=== PATIENT | female | born 1945 | race Caucasian/White ===

== ENCOUNTER 2017-11-04 10:15 | Inpatient (IN) ==
--- NOTE | 2017-11-04 10:27 | Emergency Department Note ---
Disposition Clinical Impression: Palpitations, SSS (sick sinus syndrome) Disposition: Admitted As Inpatient Condition: Critical Referrals: Val Joseph CNP [Primary Care Provider] - Forms: ED Satisfaction Letter Time of Disposition: 12:26 General Adult HPI - General Chief complaint: ED Arrhythmia/Palpitations Stated complaint: Syncopal Episode Time Seen by Provider: 11/04/17 10:24 Source: EMS Limitations: no limitations Nursing Notes Reviewed: Yes Vital Signs Reviewed: Yes - History of Present Illness HPI Narrative: Patient to the ED as a transfer from [place]. Patient presented for not feeling well. Has been on amoxicillin for upper respiratory symptoms. Whether she had 2 syncopal episodes and was noted to go into asystole with 8-9 second pauses. Patient denies chest pain or trouble breathing. Pain Scale: 0 - Related Data Home Medications Medication Instructions Recorded Confirmed Calcium Carbonate/Vitamin D3 4 tab PO BID 08/18/15 11/04/17 [Calcium 600 + Vit D Softgel] Cranberry 800 mg PO QAM 08/18/15 11/04/17 Levothyroxine [Synthroid] 100 mcg PO 0608/18/15 11/04/17 Metoprolol [Lopressor] 100 mg PO BID 08/18/15 11/04/17 Omeprazole [PriLOSEC] 40 mg PO QAM 08/18/15 11/04/17 Potassium Chloride [K-Tab ER] 10 meq PO BID 08/18/15 11/04/17 Spironolactone [Aldactone] 25 mg PO QAM 08/18/15 11/04/17 Ubidecarenone [Co Q10] 100 mg PO QAM 08/18/15 11/04/17 metFORMIN [Glucophage] 500 mg PO BIDWM 08/18/15 11/04/17 Apixaban [Eliquis] 5 mg PO BID 08/23/15 11/04/17 Metoprolol [Lopressor] 25 mg PO DAILY PRN 03/15/17 11/04/17 Allopurinol [Zyloprim] 300 mg PO DAILY 09/02/17 11/04/17 Iron 65 mg PO DAILY 09/02/17 11/04/17 Previous Rx's Medication Instructions Recorded Diltiazem HCl [Diltiazem 24Hr ER] 300 mg PO QPM #0 NS 03/11/16 Allergies Allergy/AdvReac Type Severity Reaction Status Date / Time ascorbic acid [From Fetrin] AdvReac Vomiting Verified 09/02/17 23:36 clarithromycin [From Biaxin] AdvReac HEART Verified 09/02/17 23:36 RACING Hydralazine AdvReac HEART Verified 09/02/17 23:36 RACING iron [From Fetrin] AdvReac Vomiting Verified 09/02/17 23:36 levofloxacin [From Levaquin] AdvReac HEART Verified 09/02/17 23:36 RACING lisinopril AdvReac HEART Verified 09/02/17 23:36 SKIPPING milnacipran [From Savella] AdvReac Vomiting Verified 09/02/17 23:36 prochlorperazine AdvReac STOMACH Verified 09/02/17 23:36 [From Compazine] PAIN vitamin B12 with intrinsic AdvReac Vomiting Verified 09/02/17 23:36 factor [From Fetrin] All systems ED: reviewed and negative except as stated. Cardiovascular: Denies: chest pain Respiratory: Denies: dyspnea Gastrointestinal: Denies: vomiting, diarrhea Past Medical History - Past Medical History Attestation: Yes The following information was validated with the patient. Source: patient Medical history: Reports: atrial fibrillation, diabetes, fibromyalgia, GERD, hyperlipidemia, hypertension, kidney stones Surgical history: Reports: hysterectomy Psychiatric history: Reports: no psych history - Social History Smoking Status: Never smoker Smokeless Tobacco Status: No Alcohol use: Reports: none Drug use: Reports: none Physical Exam Patient awake and alert. Has had several episodes where she clenches her fists in her eyes rolled back in her head and goes into asystole on the monitor. - General Limitations: no limitations General appearance: alert, in no apparent distress - Head Head exam: atraumatic - Eye Eye exam: Present: normal appearance - ENT ENT exam: normal exam - Neck Neck exam: Present: normal inspection - Chest Chest inspection: Present: normal inspection - Respiratory Respiratory exam: Present: normal lung sounds bilaterally - Cardiovascular Cardiovascular exam: Present: regular rate, normal rhythm - Abdominal Exam Abdominal exam: Present: soft - Neurological Exam Neurological exam: Present: alert - Psychiatric Psychiatric exam: Present: normal affect - Skin Skin exam: Present: warm, dry Course - Reevaluation(s) Reevaluation #1: Patient going to Property [employer] at this time. She has had multiple repeat episodes where again he is pacing has kicked in. Time: 12:24 - Consultations Consultation #1: Cardiology consult at bedside Dr. Dean and Dr. Butler. Patient will be gone for permanent pacemaker placement. She has had 5 episodes of asystole. She is responding to trans cutaneous pacing at this time. Time: 10:59 Consultation #2: Patient to Property [employer] Agent for permanent pacemaker placement. Time: 11:44 Vital Signs Temperature 99.7 F H 11/04/17 10:17 Pulse Rate 96 11/04/17 10:17 Respiratory Rate 18 11/04/17 10:17 Blood Pressure 129/64 11/04/17 10:17 O2 Sat by Pulse Oximetry 96 11/04/17 10:17 Temperature 99.7 F H 11/04/17 10:17 Pulse Rate 79 11/04/17 11:54 Respiratory Rate 20 11/04/17 11:54 Blood Pressure 143/59 11/04/17 11:54 O2 Sat by Pulse Oximetry 98 11/04/17 11:54 Oxygen Delivery Oxygen Delivery Nasal Cannula Medical Decision Making - EKG Data EKG #1 EKG attestation: Yes I reviewed and interpreted this EKG. EKG results narrative: A. fib at 83. No ST segment changes. Normal QRS. No T-wave inversions. QTC 380 QTC 428. Critical Care Time Critical Care Time: Yes Total Critical Care Time: 45 Attestation: Critical care performed: Time is exclusive of separately billable procedures. Time includes: direct patient care, patient reassessment, coordination of patient care, interpretation of data (laboratory data, radiology data, and respiratory data), review of patient's medical records, medical consultation and documentation of patient care. Procedures included in critical care time: Procedures excluded from critical care time:
[2017-11-04] MEDS ORDERED: 0.9 % Sodium Chloride 1,000 ML ONE (10:33)
--- NOTE | 2017-11-04 11:08 | Cardiology History & Physical ---
Date of Encounter: 11/04/17 Time of Encounter: 11:00 Assessment and Plan (1) Atrial fibrillation Current Visit: No Status: Acute Continue eliquis and rate control, consult EP for PPM. The assessment and plan as outlined above was discussed with the patient and/or family members who expressed understanding and agreement. All questions were answered. Qualifiers: Atrial fibrillation type: persistent Qualified Code(s): I48.1 - Persistent atrial fibrillation (2) Sick sinus syndrome Current Visit: Yes Status: Acute plan for PPM today with long pauses, consult EP. continue rate control and eliquis The assessment and plan as outlined above was discussed with the patient and/or family members who expressed understanding and agreement. All questions were answered. (3) Dizziness Current Visit: Yes Status: Acute The assessment and plan as outlined above was discussed with the patient and/or family members who expressed understanding and agreement. All questions were answered. History of Present Illness Chief complaint: presyncope HPI: Ms. Kimbrough is a 72 year old female with history of atrial fibrillation on Eliquis and rate control presents with presyncope/worsening dizziness starting last night that worsened this morning. It was not associated with dyspnea. She has chronic symptoms of indigestion. She notes no syncope. She had slight fever but no dyspnea, cough, dysuria. She has chronic intermittent diarrhea. Past Med Surg Social Fam HX - Past Medical History Medical history: atrial fibrillation, diabetes, fibromyalgia, GERD, hyperlipidemia, hypertension, kidney stones Psychiatric history: no psych history - Past Surgical History Surgical History: hysterectomy - Social History Smoking Status: Never smoker Smokeless Tobacco Status: No Alcohol use: none Drug use: none - Family History Mother Living Status: Hx Family Cardiac Disorders: Yes (Afib) Father Living Status: Hx Family Cancer: Yes (bowel cancer) Medications and Allergies Calcium Carbonate/Vitamin D3 [Calcium 600 + Vit D Softgel] 4 tab PO BID [History] Cranberry 800 mg PO QAM 08/18/15 [History] Levothyroxine [Synthroid] 100 mcg PO 0630 08/18/15 [History] Metoprolol [Lopressor] 100 mg PO BID 08/18/15 [History] Omeprazole [PriLOSEC] 40 mg PO QAM 08/18/15 [History] Potassium Chloride [K-Tab ER] 10 meq PO BID 08/18/15 [History] Spironolactone [Aldactone] 25 mg PO QAM 08/18/15 [History] Ubidecarenone [Co Q10] 100 mg PO QAM 08/18/15 [History] metFORMIN [Glucophage] 500 mg PO BIDWM 08/18/15 [History] Apixaban [Eliquis] 5 mg PO BID 08/23/15 [History] Diltiazem HCl [Diltiazem 24Hr ER] 300 mg PO QPM #0 NS 08/23/15 [Rx] Metoprolol [Lopressor] 25 mg PO DAILY PRN 03/15/17 [History] Allopurinol [Zyloprim] 300 mg PO DAILY 09/02/17 [History] Iron 65 mg PO DAILY 09/02/17 [History] 3 Allergy/AdvReac Type Severity Reaction Status Date / Time ascorbic acid [From Fetrin] AdvReac Vomiting Verified 09/02/17 23:36 clarithromycin [From Biaxin] AdvReac HEART Verified 09/02/17 23:36 RACING Hydralazine AdvReac HEART Verified 09/02/17 23:36 RACING iron [From Fetrin] AdvReac Vomiting Verified 09/02/17 23:36 levofloxacin [From Levaquin] AdvReac HEART Verified 09/02/17 23:36 RACING lisinopril AdvReac HEART Verified 09/02/17 23:36 SKIPPING milnacipran [From Savella] AdvReac Vomiting Verified 09/02/17 23:36 prochlorperazine AdvReac STOMACH Verified 09/02/17 23:36 [From Compazine] PAIN vitamin B12 with intrinsic AdvReac Vomiting Verified 09/02/17 23:36 factor [From Fetrin] All Systems Review: The remainder of the systems were reviewed and are negative - Constitutional Constitutional: fever(s), no chills - EENT Eyes: no blurred vision, no loss of vision Nose, mouth and throat: no bleeding gums, no epistaxis - Cardiovascular Cardiovascular: chest pain with exertion, no claudication - Respiratory Respiratory: no hemoptysis, no wheezing - Gastrointestinal Gastrointestinal: no hematemesis, no hematochezia - Genitourinary Genitourinary: no hematuria, no nocturia - Musculoskeletal Musculoskeletal: no arthralgias, no myalgias - Integumentary Integumentary: no erythema, no unusual bruising - Neurological Neurological: dizziness, no syncope, no tingling - Psychiatric Psychiatric: no hallucinations, no panic attacks - Hematological/Lymphatic Hematologic/Lymphatic: no easy bleeding, no easy bruising Physical Examination Vital Signs, Last 4 Hours Temp Pulse Resp BP Pulse Ox 11/04/17 11:00 85 20 140/65 98 11/04/17 10:17 99.7 F H 96 18 129/64 96 General: Conversant, Other (mild distress) HEENT: Atraumatic Neck: No JVD Cardiac: Other (irr irr s1 s2) Lungs: Normal Breath Sounds Neuro: Alert and responsive, No focal deficits noted Abdomen: Soft, Non-Tender Skin: No rashes noted on visualized skin Musculoskeletal: No Chest Wall Tenderness Extremities: No Edema Results - EKG Interpretation EKG results cardiology: personally reviewed, no diagnostic ischemia (af)
[2017-11-04] MEDS ORDERED: *HR* Midazolam HCl 2 MG/2 ML VIAL IVP ONE ×2 (11:09→11:15)
[2017-11-04] MEDS ORDERED: *HR* FentaNYL (PF) 100 MCG/2 ML VIAL IVP ONE (11:15)
[2017-11-04] MEDS ORDERED: Ondansetron 4 MG/2 ML VIAL IVP ONE (11:21)
[2017-11-04] MEDS ORDERED: CeFAZolin Syr 2,000MG/20 ML 2,000 MG/20 ML SYRINGE IVPB ONE (11:22)
[2017-11-04] MEDS ORDERED: 0.9 % Sodium Chloride 500 ML ONE (12:24)
[2017-11-04] MEDS ORDERED: Water for inj. (sterile) 10 ML IV ONE (12:24)
[2017-11-04] MEDS ORDERED: *HR* Midazolam HCl 2 MG/2 ML VIAL ONE (12:41)
[2017-11-04] MEDS ORDERED: *HR* FentaNYL (PF) 100 MCG/2 ML VIAL ONE (12:41)
[2017-11-04] MEDS ORDERED: *HR* Midazolam HCl 5 MG/5 ML VIAL IVP ONE (13:17)
--- NOTE | 2017-11-04 13:34 | Pre-Sedation Evaluation ---
Pre-sedation evaluation - Pre-sedation checklist Date of procedure: 11/04/17 Procedure: Pacemaker Recent Vitals: Last Vital Signs Temp 99.7 F H 11/04/17 10:17 Pulse 79 11/04/17 11:54 Resp 18 11/04/17 12:26 BP 165/76 11/04/17 12:26 Pulse Ox 98 11/04/17 11:54 H&P (including ROS) documented in medical record: Yes Previous reaction to sedatives/anesthetics: No Dietary Status: NPO 6 hours prior to procedure Airway Assessment: Patient can open mouth completely, TMJ function normal, Micrognathia (under-bite, receding chin) absent Dentition: poor dentition Possible difficult airway: No ASA Classification *see protocol: CLASS III-Severe systemic disease Plan of Care: Pt appropriate candidate for procedure/moderate/conscious sedation , Risks/benefits of procedure/sedation discussed w/ patient/family
--- NOTE | 2017-11-04 14:08 | Event Note ---
Date of Encounter: 11/04/17 Time of Encounter: 14:05 - Cardiology Event Note Full EP consult note was completed under the incorrect admission date. IT contacted and made aware. Please refer to EP consult note for full details. Discussed further with Dr. Meir Lr. Now s/p PPM. Will hold Eliquis today and restart tomorrow AM. Hold home Lopressor and Cardizem for now. Plan to start Sotalol 80mg BID tomorrow morning in attempt to restore SR. Will need daily EKGs to monitor QTc and needs monitored for 5 doses. Leukocytosis and low grade fever on admission, 99.7. Continue to monitor, but if continues will need to consult hospitalist. Cultures ordered in ED. CXR negative. If DCCV is warranted during inpt stay, will need GAEL since Eliquis was held for a full day.
--- NOTE | 2017-11-04 14:27 | Electrophysiology Consult Note ---
<Tonny Ramos R - Last Filed: 11/04/17 14:25> Date of Encounter: 11/04/17 Time of Encounter: 11:00 Assessment and Plan (1) Sick sinus syndrome Current Visit: Yes Status: Acute Known PAF hx. Currently A-Fib with symptomatic intermittent pauses/asystole up to 8 seconds. Symptoms of increased dizziness and presyncope. External pacing pads on, rate set at 40bpm. Current HR 80s, A-Fib. On Lopressor 100mg BID and Cardizem CD 300mg daily. Currently on hold. Last dose of BB this AM, CCB yesterday evening. Anticoagulated on Eliquis, last dose last night. K 4.1, TSH 4.621. Check Mag. Discussed with Dr. Meir Lr, plan for PPM insertion today. R/B/A discussed with pt. She is agreeable. TTE 09/2017 EF preserved, no significant valvular dysfunction. Stress test 09/2017 negative for ischemia or infarct. (2) PAF (paroxysmal atrial fibrillation) Current Visit: No Status: Acute Known PAF, currently A-Fib with pauses/asystolic up to 8 seconds as above. Plan for PPM today. Home meds include Cardizem CD 300mg daily and Lopressor 100mg BID, currently held. Outpt plan was for Sotalol admission. Discussed with Dr. Meir Lr. Plan to start Sotalol 80mg BID tomorrow AM. Daily EKGs to monitor QTc. Will need monitored for total of 5 doses. Baseline EKG on admission A-Fib rate 83, QT/QTc 388/428ms. Anticoagulated on Eliquis. Missed dose this AM and is getting PPM placement. Discussed with Dr. Meir Lr. Restart Eliquis tomorrow AM. If DCCV is warranted during stay, will need GAEL. (3) Dizziness Current Visit: Yes Status: Acute As above, secondary to pauses/asystole up to 8 seconds. PPM today. (4) Elevated troponin Current Visit: Yes Status: Acute Initial troponin 0.09. Suspect demand ischemia secondary to pauses/asystole up to 8 seconds as well as possible infectious source with leukocytosis and low grade temp. Nondiagnostic for ACS. Pt denies chest pain. Trend troponins. Recent stress test negative for ischemia or infarct 09/2017 and TTE 09/2017 EF preserved. (5) Leukocytosis Current Visit: Yes Status: Acute WBC 20.7. Temp 99.7 on presentation--reports fevers and chills. Recently started on Amoxicillin by PCP for sinusitis. CXR negative. Blood cultures ordered. Will check UA with reflex culture. Consider hospitalist consult. PRN tylenol for low grade fevers. Qualifiers: Leukocytosis type: unspecified Qualified Code(s): D72.829 - Elevated white blood cell count, unspecified Discussion w patient/family: The assessment and plan as outlined above was discussed with the patient and/or family members who expressed understanding and agreement. All questions were answered. Thank you for involving us in the care of your patient. Please call with any questions. I will discuss all the above with Dr. Meir Lr and make changes as necessary. History of Present Illness Consult date: 11/04/17 Requesting physician: Joshua Dean Consult reason: Pauses, PAF Chief complaint: dizziness History of present illness: Ms. Kimbrough is a 72 year old female with PMH HTN, HLD, PAF on Eliquis that was recently seen by Dr. Meir Lr in clinic to discuss antiarrhythmic initiation with Sotalol planned in upcoming weeks. Home medications for rate control include Lopressor 100mg BID and Cardizem CD 300mg daily. Presented to [place] ED this morning for worsening dizziness and presyncope. Was found to be in A-Fib with pauses/periods of asystole and transferred to [facility]. Pauses noted up to 8 seconds. Pt denies chest pain or dyspnea. Troponin 0.09. WBC 20.7 , temperature 99.7. Per pt, recently started on Amoxicillin for sinus infection and does endorse fever and chills. K 4.1. TSH 4.621. Recent stress test 10/07/17 negative for ischemia or infarct. TTE 10/07/17 EF 55-60%, mild LVDD, no significant valvular dysfunction. Temporary pacing pads placed on pt, rate set at 40bpm. HR currently 80s. EP consulted to evaluate for pacemaker insertion. Past Med Surg Social Fam HX - Past Medical History Medical history: atrial fibrillation, diabetes, fibromyalgia, GERD, hyperlipidemia, hypertension, kidney stones Psychiatric history: no psych history - Past Surgical History Surgical History: hysterectomy - Social History Smoking Status: Never smoker Smokeless Tobacco Status: No Alcohol use: none Drug use: none - Family History Mother Living Status: Hx Family Cardiac Disorders: Yes (Afib) Father Living Status: Hx Family Cancer: Yes (bowel cancer) Medications and Allergies Calcium Carbonate/Vitamin D3 [Calcium 600 + Vit D Softgel] 4 tab PO BID [History] Cranberry 800 mg PO QAM 08/18/15 [History] Levothyroxine [Synthroid] 100 mcg PO DAILY 08/18/15 [History] Metoprolol [Lopressor] 100 mg PO BID 08/18/15 [History] Omeprazole [PriLOSEC] 40 mg PO QAM 08/18/15 [History] Potassium Chloride [K-Tab ER] 20 meq PO BID 08/18/15 [History] Spironolactone [Aldactone] 25 mg PO QAM 08/18/15 [History] Ubidecarenone [Co Q10] 100 mg PO QAM 08/18/15 [History] metFORMIN [Glucophage] 500 mg PO BIDWM 08/18/15 [History] Apixaban [Eliquis] 5 mg PO BID 08/23/15 [History] Diltiazem HCl [Diltiazem 24Hr ER] 300 mg PO QPM #0 NS 08/23/15 [Rx] Metoprolol [Lopressor] 25 mg PO DAILY PRN 03/15/17 [History] Allopurinol [Zyloprim] 300 mg PO DAILY 09/02/17 [History] Iron 65 mg PO DAILY 09/02/17 [History] Magnesium Oxide [Mag-Ox] 400 mg PO BID 11/04/17 [History] Pravastatin Sodium [Pravachol] 40 mg PO DAILY 11/04/17 [History] 3 Allergy/AdvReac Type Severity Reaction Status Date / Time ascorbic acid [From Fetrin] AdvReac Vomiting Verified 09/02/17 23:36 clarithromycin [From Biaxin] AdvReac HEART Verified 09/02/17 23:36 RACING Hydralazine AdvReac HEART Verified 09/02/17 23:36 RACING iron [From Fetrin] AdvReac Vomiting Verified 09/02/17 23:36 levofloxacin [From Levaquin] AdvReac HEART Verified 09/02/17 23:36 RACING lisinopril AdvReac HEART Verified 09/02/17 23:36 SKIPPING milnacipran [From Savella] AdvReac Vomiting Verified 09/02/17 23:36 prochlorperazine AdvReac STOMACH Verified 09/02/17 23:36 [From Compazine] PAIN vitamin B12 with intrinsic AdvReac Vomiting Verified 09/02/17 23:36 factor [From Fetrin] All Systems Review: The remainder of the systems were reviewed and are negative - Cardiovascular Cardiovascular: as per HPI, lightheadedness - Neurological Neurological: dizziness Physical Examination Vital Signs, Last 4 Hours Temp Pulse Resp BP Pulse Ox 11/04/17 14:10 98.3 F 59 14 121/50 96 Vital Signs Temp Pulse Resp BP Pulse Ox 11/04/17 14:10 98.3 F 59 14 121/50 96 11/04/17 12:26 18 165/76 11/04/17 11:54 79 20 143/59 98 11/04/17 11:30 85 18 130/64 97 11/04/17 11:00 85 18 140/65 95 11/04/17 10:17 99.7 F H 96 18 129/64 96 Intake and Output 11/03/17 11/04/17 11/04/17 23:59 07:59 15:59 Other: Weight 85.729 kg Patient Weight 11/04/17 23:59 Weight 85.729 kg General: Conversant, No Apparent Distress HEENT: Atraumatic, Normocephaly, Mucus Membranes Moist Neck: No JVD, Normal carotid pulses Cardiac: Other (irregularly irregular) Lungs: Normal Breath Sounds, No Wheeze, Rales, Rhonchi Neuro: Alert and responsive, No focal deficits noted Abdomen: Soft, Non-Tender Skin: No rashes noted on visualized skin Musculoskeletal: No Chest Wall Tenderness Extremities: No Clubbing, No Cyanosis, No Edema, Normal Pulses Results Impressions Chest X-Ray 11/04/17 13:35 IMPRESSION: 1. Low lung volumes. 2. Placement a left-sided cardiac device. No evidence of a pneumothorax. D/ / Adelso Moody MD / Adelso Moody MD Interpreting Provider: Adelso Moody MD Active Medications Acetaminophen (Tylenol) 650 mg PO Q4HR PRN PRN Reason: Fever Stop: 05/06/18 14:11 Allopurinol (Zyloprim) 300 mg PO DAILY [facility] Stop: 05/07/18 09:01 Apixaban (Eliquis) 5 mg PO BID [facility] Stop: 05/07/18 09:01 Calcium Carbonate (Tums) 2,000 mg PO BID [facility] Stop: 05/06/18 21:01 Ferrous Sulfate (Ferrous Sulfate) 325 mg PO DAILY [facility] Stop: 05/07/18 09:01 Dopamine HCl/Dextrose (Dopamine Premix 400mg/250ml) 400 mg in 250 mls @ 16.074 mls/hr IVC .[id number] [facility]; 5 MCG/KG/MIN PRN Reason: Protocol Stop: 05/06/18 11:01 Last Admin: 11/04/17 10:52 Dose: 5 mcg/kg/min, 16.074 mls/hr Levothyroxine Sodium (Synthroid) 100 mcg PO 0630 [facility] Stop: 05/07/18 06:31 Metformin HCl (Glucophage) 500 mg PO BIDWM [facility] PRN Reason: Protocol Stop: 05/06/18 17:01 Non-Formulary Medication (Cranberry [Cranberry]) 800 mg PO QAM [facility] Stop: 05/07/18 09:01 Non-Formulary Medication (Ubidecarenone [Co Q10]) 100 mg PO QAM [facility] Stop: 05/07/18 09:01 Omeprazole (Prilosec) 40 mg PO QAM [facility] Stop: 05/07/18 09:01 Potassium Chloride (Potassium Chloride) 10 meq PO BIDWM [facility] Stop: 05/06/18 17:01 Sotalol HCl (Betapace) 80 mg PO Q12H [facility] Stop: 05/07/18 09:01 Spironolactone (Aldactone) 25 mg PO QAM [facility] Stop: 05/07/18 09:01 Vitamin D (Vitamin D) 1,000 unit PO DAILY [facility] Stop: 05/07/18 09:01 - Imaging and Cardiology Stress Test: report reviewed Echo: report reviewed - EKG Interpretation EKG results cardiology: personally reviewed (A-Fib) Consult Discharge Plan - Plan Referrals: Val Joseph, [facility] [Primary Care Provider] - <Meir Lr - Last Filed: 11/04/17 15:25> Date of Encounter: 11/04/17 - Attending Attestation I have personally performed a face to face evaluation on this patient. I have reviewed and agree with the care plan. History and Exam by me shows: Known PAF. Presented with AF and paroxsysmal AV block with symptomatic pauses. Will proceed with perm. pacemaker and initiate sotalol as previously planned. Assessment and Plan Discussion w patient/family: The assessment and plan as outlined above was discussed with the patient and/or family members who expressed understanding and agreement. All questions were answered. Thank you for involving us in the care of your patient. Please call with any questions. History of Present Illness History of present illness: Ms. Kimbrough is a 72 year old female All Systems Review: The remainder of the systems were reviewed and are negative Physical Examination Vital Signs, Last 4 Hours Temp Pulse Resp BP Pulse Ox 11/04/17 15:01 59 11 116/66 95 11/04/17 14:34 59 14 109/57 95 11/04/17 14:10 98.3 F 59 14 121/50 96
[2017-11-04] MEDS ORDERED: *HR* Metformin 500 MG TABLET PO SCH (17:00)
[2017-11-04] MEDS: Acetaminophen 325 MG TABLET PO PRN (17:40)
[2017-11-04] MEDS: *HR* Metformin 500 MG TABLET PO SCH (17:40)
[2017-11-04] MEDS ORDERED: *HR* Heparin 5,000 UNIT/ML VIAL SQ ONE (18:00)
[2017-11-04] MEDS ORDERED: *HR* Heparin 5,000 UNIT/ML VIAL SQ SCH (18:00)
[2017-11-04 19:57] LABS: Bilirubin,Urine Negative (Negative); Blood,Urine Moderate (Negative); Clarity,Urine Clear (Clear); Color,Urine Yellow (Yellow); Glucose,Urine (UA) 100 mg/dL (Normal); Ketones,Urine Trace mg/dL (Negative); Leukocyte Esterase,Urine Negative (Negative); Nitrite,Urine Negative (Negative); Protein,Urine 30 mg/dL (Neg-Trace); Specific Gravity,Urine 1.023 (1.010-1.025); Urobilinogen,Urine Normal (Normal)
[2017-11-04 19:59] LABS: Bacteria,Urine None Seen per hpf (None-Few); Hyaline Casts,Urine None Seen per lpf (None-Few); RBC,Urine 0-3 per hpf (0-3); Squamous Epithelial Cell,Urine Few per lpf (None-Few); WBC,Urine 0-3 per hpf (0-3)
[2017-11-04] MEDS ORDERED: NON-FORMULARY MEDICATION 1 EACH EACH (Calcium Carbonate/Vitamin D3 [Calcium 600 + Vit D So PO SCH (21:00)
[2017-11-04] MEDS ORDERED: POTASSIUM CHLORIDE 10 MEQ PO SCH (21:00)
[2017-11-04] MEDS: Magnesium Oxide 400 MG TABLET PO SCH (21:02)
[2017-11-05] MEDS: Acetaminophen 325 MG TABLET PO PRN ×4 (01:14→23:06)
[2017-11-05] MEDS: Magnesium Oxide 400 MG TABLET PO SCH ×2 (08:06→23:07)
[2017-11-05] MEDS: Apixaban 5 MG TABLET PO SCH ×2 (08:06→23:07)
[2017-11-05] MEDS: Spironolactone 25 MG TABLET PO SCH (08:06)
[2017-11-05] MEDS: *HR* Metformin 500 MG TABLET PO SCH ×2 (08:06→17:14)
[2017-11-05] MEDS: Cholecalciferol (D-3) 1,000 UNIT TABLET PO SCH (08:06)
[2017-11-05] MEDS ORDERED: (Ubidecarenone [Co Q10] 100 MG) PO SCH (09:00)
[2017-11-05] MEDS ORDERED: NON-FORMULARY MEDICATION 1 EACH EACH (Ubidecarenone [Co Q10] 100 MG) PO SCH (09:00)
[2017-11-05] MEDS ORDERED: CRANBERRY 800 MG PO SCH ×2 (09:00)
[2017-11-05] MEDS ORDERED: NON-FORMULARY MEDICATION 1 EACH EACH (Omeprazole [Prilosec] 40 MG) PO SCH (09:00)
[2017-11-05] MEDS ORDERED: IRON 65 MG PO SCH (09:00)
[2017-11-05] MEDS ORDERED: Spironolactone 25 MG TABLET PO SCH (09:00)
--- NOTE | 2017-11-05 11:52 | Electrophysiology ProgressNote ---
Date of Encounter: 11/05/17 Time of Encounter: 11:50 Assessment and Plan (1) Sick sinus syndrome Current Visit: Yes Status: Acute Known PAF hx. Presented with a-Fib with symptomatic intermittent pauses/ asystole up to 8 seconds. Symptoms of increased dizziness and presyncope. Underwent PPM placement yesterday. No complication from procedure. C/o mild pain. She is symptomatic with her afib. Sotalol initiation today as planned. TTE 09/2017 EF preserved, no significant valvular dysfunction. Stress test 09/2017 negative for ischemia or infarct. Post day device check shows 70% pacing. No atrial thresh hold due to afib. No R wave measurement. Chest x-ray negative for pnuemothorax. (2) PAF (paroxysmal atrial fibrillation) Current Visit: No Status: Acute Known PAF. Currently A-Fib with intermittent pacing. Home meds include Cardizem CD 300mg daily and Lopressor 100mg BID. Start sotalol 80 mg BID per recommendation. Daily EKGs to monitor QTc. Will need monitored for total of 5 doses. Baseline EKG on admission A-Fib rate 83, QT/QTc 388/428ms. Anticoagulated on Eliquis. Missed dose this AM and is getting PPM placement. Discussed with Dr. Meir Lr. Restart Eliquis tomorrow AM. If DCCV is warranted during stay, will need GAEL. (3) Leukocytosis Current Visit: Yes Status: Acute WBC 20.7. Temp 99.7 on presentation--reports fevers and chills. Recently started on Amoxicillin by PCP for sinusitis. (Reported sneezing, sore throat, and cough after traveling on a bus.) No fever since admit. CXR negative. Blood cultures ordered. Will check UA with reflex culture. Consider hospitalist consult. PRN tylenol for low grade fevers. Repeat CBC in am. Qualifiers: Leukocytosis type: unspecified Qualified Code(s): D72.829 - Elevated white blood cell count, unspecified Discussion w patient/family: The assessment and plan as outlined above was discussed with the patient and/or family members who expressed understanding and agreement. All questions were answered. Thank you for involving us in the care of your patient. Please call with any questions. Subjective Principal diagnosis: sick sinus syndrome Interval history: S/p PPM in AMBER. C/o mild pain at incision site and requesting tylenol. RN notified. Also c/o palpitations and dizziness this morning. Objective Vital Signs, Last 4 Hours Temp Pulse Resp BP Pulse Ox 11/05/17 11:48 98.4 F 62 18 113/58 97 General: Conversant, Other (ill appearing) HEENT: Atraumatic, Normocephaly, Mucus Membranes Moist Neck: No JVD, Normal carotid pulses Cardiac: Other (Irregularly irregualr. AMBER incision dressing d/i) Lungs: Normal Breath Sounds, No Wheeze, Rales, Rhonchi Neuro: Alert and responsive, No focal deficits noted Abdomen: Soft, Non-Tender Skin: No rashes noted on visualized skin Musculoskeletal: No Chest Wall Tenderness Extremities: No Clubbing, No Cyanosis, No Edema, Normal Pulses Results Lab Results 11/04/17 15:23 Troponin I 0.09 H* - Imaging and Cardiology Echo: report reviewed - EKG Interpretation EKG results cardiology: personally reviewed Consult Discharge Plan - Plan Referrals: Val Joseph, [employer] [Primary Care Provider] -
[2017-11-06 07:49] LABS: BUN/Creatinine Ratio 31 (6-26); Blood Urea Nitrogen 15 mg/dL (8-23); Calcium 8.4 mg/dL (8.6-10.3); Carbon Dioxide 25 mEq/L (23-29); Chloride 100 mEq/L (98-107); Glucose 149 mg/dL (70-105); Osmolality,Calculated 286 (280-300); Potassium 4.1 mEq/L (3.5-5.1); Sodium 136 mEq/L (136-145); eGFR For African Americans > 60 (> 60); eGFR For Non-African Americans > 60 (> 60)
[2017-11-06 07:53] LABS: Basophils # 0.1 K/mcL (0.0-0.2); Basophils % 0.6 %; Eosinophils # 0.1 K/mcL (0.0-0.6); Eosinophils % 0.9 %; Hematocrit 33.8 % (35.3-44.9); Hemoglobin 11.3 g/dL (11.5-15.4); Lymphocytes # 1.7 K/mcL (0.6-4.6); Mean Corpuscular HGB Conc 33.4 g/dL (31.6-35.5); Mean Corpuscular Hemoglobin 30.5 pg (28.0-33.3); Mean Corpuscular Volume 91.1 fL (83.0-100.0); Mean Platelet Volume 9.2 fL (9.4-12.4); Monocytes # 0.9 K/mcL (0.0-1.3); Monocytes % 8.1 %; Neutrophils # 7.7 K/mcL (1.6-8.9); Platelet Count 408 K/mcL (140-400); Red Blood Count 3.71 M/mcL (3.82-4.97); Red Cell Distribution Width 13.6 % (11.5-14.5); Segmented Neutrophils % 73.4 %
[2017-11-06] MEDS: Spironolactone 25 MG TABLET PO SCH (08:22)
[2017-11-06] MEDS: Apixaban 5 MG TABLET PO SCH ×2 (08:22→20:49)
[2017-11-06] MEDS: *HR* Metformin 500 MG TABLET PO SCH ×2 (08:23→17:35)
[2017-11-06] MEDS: Acetaminophen 325 MG TABLET PO PRN ×2 (08:23→22:37)
[2017-11-06] MEDS: Magnesium Oxide 400 MG TABLET PO SCH ×2 (08:23→20:49)
[2017-11-06] MEDS: Cholecalciferol (D-3) 1,000 UNIT TABLET PO SCH (08:24)
[2017-11-06] MEDS: (Ubidecarenone [Co Q10] 100 MG) PO SCH (08:25)
[2017-11-06] MEDS: CRANBERRY 800 MG PO SCH (08:25)
--- NOTE | 2017-11-06 15:23 | Electrophysiology ProgressNote ---
Date of Encounter: 11/06/17 Time of Encounter: 15:21 Assessment and Plan (1) Sick sinus syndrome Current Visit: Yes Status: Acute Known PMH of PAF. Presented with a-Fib with symptomatic intermittent pauses/ asystole up to 8 seconds. Symptoms of increased dizziness and presyncope. Underwent PPM placement 11/04/17. No complication from procedure. C/o mild pain. She is symptomatic with her afib. Sotalol 80 mg BID initiation 11/03/17. TTE 09/2017 EF preserved, no significant valvular dysfunction. Stress test 09/2017 negative for ischemia or infarct. Post day device check shows 70% pacing. No atrial thresh hold due to afib. No R wave measurement. Chest x-ray negative for pnuemothorax. (2) PAF (paroxysmal atrial fibrillation) Current Visit: No Status: Acute Known PAF. Currently A-Fib with intermittent pacing. Home meds include Cardizem CD 300mg daily and Lopressor 100mg BID. Medications held per recommendations of Dr. Lr. Patient hypotensive 11/05/17, unable to restart. Sotalol 80 mg BID started 11/05/17, s/p 2nd dose. Daily EKGs to monitor QTc. Will need monitored for total of 5 doses. Baseline EKG on admission A-Fib rate 83, QT/QTc 388/428ms. EKG 11/06/17, V paced, with afib underlying, QT/QTc 462/471, QRS 89. Reviewed with Dr. Calabrese. QTc is longer due to wide QRS with V pacing. Baseline morphology with calculated Qt/QTc 400/429. Okay to continue sotalol. Anti-coagulated on eliquis. Missed doses on day of PPM placement. Previously discussed with Dr. Meir Lr, If DCCV is warranted during stay, will need GAEL. (3) Leukocytosis Current Visit: Yes Status: Acute WBC 20.7. Temp 99.7 on presentation--reports fevers and chills. Recently started on Amoxicillin by PCP for sinusitis. (Reported sneezing, sore throat, and cough after traveling on a bus.) No fever since admit. CXR negative. UA negative. Preliminary blood culture negative x2. No recurrent fevers. (Patient says she has fever when temp 98). WBC returned to normal. PRN tylenol for low grade fevers. Qualifiers: Leukocytosis type: unspecified Qualified Code(s): D72.829 - Elevated white blood cell count, unspecified Discussion w patient/family: The assessment and plan as outlined above was discussed with the patient and/or family members who expressed understanding and agreement. All questions were answered. Thank you for involving us in the care of your patient. Please call with any questions. Subjective Principal diagnosis: sick sinus syndrome Interval history: S/p PPM in AMBER. C/o mild pain at incision site but improved. Feeling better today. Objective Vital Signs, Last 4 Hours Temp Pulse Resp BP Pulse Ox 11/06/17 12:34 98.4 F 65 16 138/69 95 General: Conversant, No Apparent Distress HEENT: Atraumatic, Normocephaly, Mucus Membranes Moist Neck: No JVD, Normal carotid pulses Cardiac: Other (Irregularly irregular, AMBER dressing intact) Lungs: Normal Breath Sounds, No Wheeze, Rales, Rhonchi Neuro: Alert and responsive, No focal deficits noted Abdomen: Soft, Non-Tender Skin: No rashes noted on visualized skin Musculoskeletal: No Chest Wall Tenderness Extremities: No Clubbing, No Cyanosis, No Edema, Normal Pulses Results 11/06/17 06:48 11/06/17 06:48 Lab Results 11/06/17 11/06/17 06:48 06:48 WBC 10.5 Hgb 11.3 L D Hct 33.8 L Plt Count 408 H Sodium 136 Potassium 4.1 Chloride 100 Carbon Dioxide 25 BUN 15 Creatinine 0.49 L Glucose 149 H Calcium 8.4 L - EKG Interpretation EKG results cardiology: personally reviewed Consult Discharge Plan - Plan Referrals: Val Joseph, RN [facility] [Primary Care Provider] -
[2017-11-06] MEDS: Ibuprofen 400 MG TABLET PO PRN (15:29)
[2017-11-07] MEDS: (Ubidecarenone [Co Q10] 100 MG) PO SCH (08:12)
[2017-11-07] MEDS: *HR* Metformin 500 MG TABLET PO SCH ×2 (08:13→16:57)
[2017-11-07] MEDS: CRANBERRY 800 MG PO SCH (08:13)
[2017-11-07] MEDS: Cholecalciferol (D-3) 1,000 UNIT TABLET PO SCH (08:13)
[2017-11-07] MEDS: Magnesium Oxide 400 MG TABLET PO SCH ×2 (08:13→20:53)
[2017-11-07] MEDS: Acetaminophen 325 MG TABLET PO PRN ×2 (08:14→13:29)
[2017-11-07] MEDS: Apixaban 5 MG TABLET PO SCH ×2 (08:14→20:52)
[2017-11-07] MEDS: Spironolactone 25 MG TABLET PO SCH (08:14)
--- NOTE | 2017-11-07 12:21 | Electrophysiology ProgressNote ---
Date of Encounter: 11/07/17 Time of Encounter: 07:45 Assessment and Plan (1) Sick sinus syndrome Current Visit: Yes Status: Acute Known PMH of PAF. Presented with a-Fib with symptomatic intermittent pauses/ asystole up to 8 seconds. Symptoms of increased dizziness and presyncope. Underwent PPM placement 11/04/17. No complication from procedure. C/o mild pain. She is symptomatic with her afib. Sotalol 80 mg BID initiation 11/03/17. TTE 09/2017 EF preserved, no significant valvular dysfunction. Stress test 09/2017 negative for ischemia or infarct. Post day device check shows 70% pacing. No atrial thresh hold due to afib. No R wave measurement. Chest x-ray negative for pnuemothorax. Less pain with incision. Tylenol PRN pain. (2) PAF (paroxysmal atrial fibrillation) Current Visit: No Status: Acute Known PAF. Currently A-Fib with intermittent pacing. Home meds include Cardizem CD 300mg daily and Lopressor 100mg BID. Medications held per recommendations of Dr. Lr. Patient hypotensive 11/05/17, unable to restart. Sotalol 80 mg BID started 11/05/17, s/p 5th dose. Daily EKGs to monitor QTc. Will need monitored for total of 5 doses. Baseline EKG on admission A-Fib rate 83, QT/QTc 388/428ms. EKG 11/06/17, V paced, with afib underlying, QT/QTc 462/471, QRS 89. Reviewed with Dr. Calabrese. QTc is longer due to wide QRS with V pacing. Baseline morphology with calculated Qt/QTc 400/429. EKG this morning shows atrial fibrillation with ventricular pacing. QT/QTC 443/ 456, QRS 85. Okay to continue sotalol. Later this morning after my assessment it was noticed patient converted to NSR around 10:30 am. Re-peat ekg ordered. I discussed discharge and patient and she declines to go home due to just converting to NSR. WIll monitor and d/c in the morning. Anti-coagulated on eliquis. (Missed doses on day of PPM placement) (3) Leukocytosis Current Visit: Yes Status: Acute WBC 20.7. Temp 99.7 on presentation--reports fevers and chills. Recently started on Amoxicillin by PCP for sinusitis. (Reported sneezing, sore throat, and cough after traveling on a bus.) No fever since admit. (Patient says she has fever when temp 98) CXR negative. UA negative. Preliminary blood culture negative x2. No recurrent fevers. WBC returned to normal. PRN tylenol for low grade fevers. Qualifiers: Leukocytosis type: unspecified Qualified Code(s): D72.829 - Elevated white blood cell count, unspecified Discussion w patient/family: The assessment and plan as outlined above was discussed with the patient and/or family members who expressed understanding and agreement. All questions were answered. Thank you for involving us in the care of your patient. Please call with any questions. Subjective Principal diagnosis: sick sinus syndrome Interval history: S/p PPM in AMBER. C/o mild pain at incision site but improved. No new complaints. Reports less palpitations. Objective Vital Signs, Last 4 Hours Temp Pulse Resp BP Pulse Ox 11/07/17 11:00 98.2 F 76 17 117/71 95 General: Conversant, No Apparent Distress HEENT: Atraumatic, Normocephaly, Mucus Membranes Moist Neck: No JVD, Normal carotid pulses Cardiac: Other (Irregularly irregular, AMBER dressing D/I) Lungs: Normal Breath Sounds, No Wheeze, Rales, Rhonchi Neuro: Alert and responsive, No focal deficits noted Abdomen: Soft, Non-Tender Skin: No rashes noted on visualized skin Musculoskeletal: No Chest Wall Tenderness Extremities: No Clubbing, No Cyanosis, No Edema, Normal Pulses Results 11/06/17 06:48 11/06/17 06:48 - Imaging and Cardiology Echo: report reviewed - EKG Interpretation EKG results cardiology: personally reviewed Consult Discharge Plan - Plan Referrals: Val Joseph, [employer] [Primary Care Provider] -
[2017-11-07] MEDS: Ibuprofen 400 MG TABLET PO PRN (21:08)
--- NOTE | 2017-11-08 08:42 | Discharge Summary ---
Orders not resulted at time of discharge: Pending orders 11/04/17 15:23 Culture,Blood [BC] Stat 11/07/17 10:32 EKG [ECG 12 lead ECG] [ECG] Routine 11/08/17 07:24 EKG [ECG 12 lead ECG] [ECG] Routine Date of Encounter: 11/08/17 Time of Encounter: 08:35 - Discharge Diagnosis (1) Sick sinus syndrome Priority: Primary Status: Acute Comments: Admitted with Yamileth berman with presyncope/dizziness with significant pauses. Underwent pacemaker. - Hospital Course Hospital course: Ms. Kimbrough is a 72 year old female with known history of atrial fibrillation admitted for presyncope and dizziness with A. cullen with slow ventricular response and pauses up to 8 seconds. Underwent pacer insertion. Started on sotalol 80 mg by mouth every 12 hours. Converted to sinus rhythm yesterday. Remains sinus rhythm in the 70s with ventricular pacing. Current QTC stable at 468 ms. Post-pacer education provided. Prepping for discharge home today in stable condition. Will now be off Cardizem 300 mg by mouth daily and her previous dose of beta [place]. All questions answered. Follow-up arranged. - Time Spent with Patient Total time spent providing and/or coordinating discharge services: Less than 30 minutes - Discharge Medications Prescriptions: Sotalol [Betapace] 80 mg PO Q12H #60 tablet Home Medications: Calcium Carbonate/Vitamin D3 [Calcium 600 + Vit D Softgel] 4 tab PO BID [History] Cranberry 800 mg PO QAM 08/18/15 [History] Levothyroxine [Synthroid] 100 mcg PO DAILY 08/18/15 [History] Omeprazole [PriLOSEC] 40 mg PO QAM 08/18/15 [History] Potassium Chloride [K-Tab ER] 20 meq PO BID 08/18/15 [History] Spironolactone [Aldactone] 25 mg PO QAM 08/18/15 [History] Ubidecarenone [Co Q10] 100 mg PO QAM 08/18/15 [History] metFORMIN [Glucophage] 500 mg PO BIDWM 08/18/15 [History] Apixaban [Eliquis] 5 mg PO BID 08/23/15 [History] Allopurinol [Zyloprim] 300 mg PO DAILY 09/02/17 [History] Iron 65 mg PO DAILY 09/02/17 [History] Magnesium Oxide [Mag-Ox] 400 mg PO BID 11/04/17 [History] Pravastatin Sodium [Pravachol] 40 mg PO DAILY 11/04/17 [History] Sotalol [Betapace] 80 mg PO Q12H #60 tablet 11/08/17 [Rx] Allergies/Adverse Reactions: 3 Allergy/AdvReac Type Severity Reaction Status Date / Time ascorbic acid [From Fetrin] AdvReac Vomiting Verified 09/02/17 23:36 clarithromycin [From Biaxin] AdvReac HEART Verified 09/02/17 23:36 RACING Hydralazine AdvReac HEART Verified 09/02/17 23:36 RACING levofloxacin [From Levaquin] AdvReac HEART Verified 09/02/17 23:36 RACING lisinopril AdvReac HEART Verified 09/02/17 23:36 SKIPPING milnacipran [From Savella] AdvReac Vomiting Verified 09/02/17 23:36 prochlorperazine AdvReac STOMACH Verified 09/02/17 23:36 [From Compazine] PAIN vitamin B12 with intrinsic AdvReac Vomiting Verified 09/02/17 23:36 factor [From Fetrin] Date of admission: 11/04/17 14:00 Primary care physician: Val Joseph CNP Consults: none Discharging clinician: Tin Cantu Anticipated date of discharge: 11/08/17 Physical Examination Vital Signs, Last 4 Hours Temp Pulse Resp BP Pulse Ox 11/08/17 07:26 98.0 F 68 16 122/73 96 General: Conversant, No Apparent Distress HEENT: Atraumatic, Normocephaly, Mucus Membranes Moist Neuro: Alert and responsive, No focal deficits noted Abdomen: Soft, Non-Tender Skin: No rashes noted on visualized skin, Other (Left anterior chest wall incision site well approximated, no erythema, no drainage, Steri-Strips intact) Musculoskeletal: No Chest Wall Tenderness - Patient Status Disposition: Home, Self-Care Condition: Fair Functional capacity at discharge: independent ambulation Overall status at discharge: patient is progressing back to baseline - Discharge Instructions Follow Up With: Val Joseph CNP [Primary Care Provider] - Additional Instructions: ACTIVITY: Moderate activity for the next 7 days. No lifting more than 5 pounds ( gallon of milk) for 4-6 weeks. Avoid lifting your arm on the same side as the device for 4 weeks. BATHING /SHOWERING: Do not remove the large bandage over the site for 2 days. Do not allow the device to get wet for 7-10 days. You may bathe/shower, but do not use soap and water on the site. When bathing, keep the site dry by covering with Saran wrap or a towel. WOUND CARE: The white steri-strips will start to peel away and come off after 14 days, or your doctor will remove them after [address] into or on top of the incision. Do not use cotton swabs. Do not use any antibiotic ointment or Vitamin E on the site. REMINDERS: You may use electrical devices, such as, microwaves, hair dryers, electric razors, electric blankets, etc. as long as they are in good condition and kept 6 -8 inches away from the device. It is recommended to use cell phones on the opposite side of your device. Notify security personnel at the airport that you have a device before you go through airport security screening. When at places with security monitors, such as a grocery store, do not linger near these monitors. It is fine to walk past them in a normal manner. Refer to your owners manual for more specific directions. CARRY YOUR PACEMAKER/ICD CARD WITH YOU AT ALL TIMES Return to work as instructed per physician Resume driving as instructed per physician Keep all scheduled follow up appointments Resume medications as instructed Contact [facility] ( ) if: You develop excessive bleeding from insertion or wound site not controlled by applying pressure You develop a fever greater than 101 degrees Fahrenheit Your incision becomes reddened at or around the site Your incision develops yellowish or greenish drainage or development of white pimple-like bumps You experience excessive pain You develop swelling in your ankles You experience muscle switching You develop excessive hiccupping If you experience chest pain, shortness of breath, dizziness, or extreme tiredness, stop the activity and rest. Please notify [facility] office if you experience any of these symptoms and they are not relieved by rest please call 911! - Diet and Activity Diet: advance to your usual diet
[2017-11-08] MEDS: Cholecalciferol (D-3) 1,000 UNIT TABLET PO SCH (08:51)
[2017-11-08] MEDS: Spironolactone 25 MG TABLET PO SCH (08:51)
[2017-11-08] MEDS: Magnesium Oxide 400 MG TABLET PO SCH (08:51)
[2017-11-08] MEDS: *HR* Metformin 500 MG TABLET PO SCH (08:51)
[2017-11-08] MEDS: (Ubidecarenone [Co Q10] 100 MG) PO SCH (08:52)
[2017-11-08] MEDS: CRANBERRY 800 MG PO SCH (08:52)
[2017-11-08] MEDS: Apixaban 5 MG TABLET PO SCH (08:52)
[2017-11-08] MEDS: Ibuprofen 400 MG TABLET PO PRN (08:56)
[2017-11-08 11:02] VITALS: BP 117/75
--- NOTE | 2017-11-09 12:38 | Electrocardiograph Report ---
[place] [address] Test Date: 2017-11-06 Pat Name: Yin Kimbrough Department: 112 Room: 2A Gender: F Patient Resource Coordinator: : 1945 Requested By: Tonny Ramos Order Number: [id number] Reading MD: Jason Iyer Measurements Intervals [place] Rate: 63 P: [place]: 0 QRS: -6 QRSD: 85 T: -73 QT: 464 QTc: 472 Interpretive Statements DEMAND VENTRICULAR PACEMAKER UNDERLYING ATRIAL FIBRILLATION ST DEVIATION AND MODERATE T-WAVE ABNORMALITY, CONSIDER ANTEROLATERAL ISCHEMIA ST DEVIATION AND MODERATE T-WAVE ABNORMALITY, CONSIDER INFERIOR ISCHEMIA Electronically Signed On 11-09-2017 12:36:45 EDT by Jason Iyer
--- NOTE | 2017-11-09 12:39 | Electrocardiograph Report ---
[place] [address] Test Date: 2017-11-06 Pat Name: Yin Kimbrough Department: 112 Room: 2A Gender: F Equipment Application Specialist: : 1945 Requested By: Tonny Ramos Order Number: [id number] Reading MD: Jason Iyer Measurements Intervals [place] Rate: 64 P: [place]: 0 QRS: -8 QRSD: 89 T: -75 QT: 462 QTc: 471 Interpretive Statements DEMAND VENTRICULAR PACEMAKER UNDERLYING ATRIAL FIBRILLATION ST DEVIATION AND MODERATE T-WAVE ABNORMALITY, CONSIDER ANTERIOR ISCHEMIA ST DEVIATION AND MODERATE T-WAVE ABNORMALITY, CONSIDER INFERIOR ISCHEMIA Electronically Signed On 11-09-2017 12:37:43 EDT by Jason Iyer
--- NOTE | 2017-11-10 06:47 | Electrocardiograph Report ---
[address] [place], [place] [address] Test Date: 2017-11-07 Pat Name: Yin Kimbrough Department: 112 Room: [facility] Gender: F Active Directory Architect: : 1945 Requested By: Tonny Ramos Order Number: [id number] Reading MD: Joshua Dean Measurements Intervals [place] Rate: 66 P: [place]: 0 QRS: -5 QRSD: 85 T: -70 QT: 443 QTc: 456 Interpretive Statements UNCERTAIN UNDERLYING RHYTHM WITH DEMAND VENTRICULAR PACING ANTEROLATERAL ISCHEMIA Electronically Signed On 11-10-2017 6:45:13 EDT by Joshua Dean
--- NOTE | 2017-11-10 06:50 | Electrocardiograph Report ---
[address] [address] Test Date: 2017-11-07 Pat Name: Yin Kimbrough Department: 112 Room: [facility] Gender: F Bar Tacker: : 1945 Requested By: Chris Ravi Order Number: [id number] Reading MD: Joshua Dean Measurements Intervals [place] Rate: 77 P: 85 [place]: 205 QRS: -26 QRSD: 85 T: -63 QT: 424 QTc: 456 Interpretive Statements ELECTRONIC VENTRICULAR PACEMAKER Electronically Signed On 11-10-2017 6:48:17 EDT by Joshua Dean
--- NOTE | 2017-11-10 07:05 | Electrocardiograph Report ---
[address] [address] Test Date: 2017-11-08 Pat Name: Yin Kimbrough Department: 112 Room: [facility] Gender: F Lead Fire Protection Engineer: : 1945 Requested By: Chris Ravi Order Number: [id number] Reading MD: Joshua Dean Measurements Intervals [place] Rate: 71 P: 56 [place]: 180 QRS: -37 QRSD: 109 T: -1 QT: 445 QTc: 468 Interpretive Statements ELECTRONIC VENTRICULAR PACEMAKER Electronically Signed On 11-10-2017 7:04:10 EDT by Joshua Dean
== END 2017-11-08 13:18 | disposition home or self-care (01) | DRG 242 ==
LOC: EMEROO 10:15 → 2ANU 10:15 → 2SOUTHHOLD 13:59 → 2ANU 11-05 19:52
PROVIDERS: ADMIT Hospitalist; ATTEND Hospitalist

== ENCOUNTER 2017-12-05 01:06 | Observation (INO) ==
[2017-12-05] MEDS ORDERED: Naloxone 0.4 MG/ML INJ IVP PRN (02:04)
[2017-12-05] MEDS ORDERED: *HR* Dextrose 50 % in Water (Syg) 50 ML SYRINGE IVP PRN (02:09)
[2017-12-05] MEDS ORDERED: D5% in Water 1,000 ML IVC PRN (02:09)
[2017-12-05] MEDS ORDERED: Dextrose Gel 15 GM/37.5 ML TUBE PO PRN ×2 (02:09)
[2017-12-05] MEDS ORDERED: Nitroglycerin 1 INCH/GM PACKET TP PRN (02:13)
--- NOTE | 2017-12-05 02:20 | Internal Med History&Physical ---
Date of Encounter: 12/05/17 Time of Encounter: 01:30 Internal Medicine - H&P: HPI Chief complaint: Chest discomfort Admitted From: Home Plans for Post Hospital Care: Home History of present illness: Ms. Kimbrough is a 72 year old female present to [place] emergency room for chest discomfort. Past medical history is significant for A. fib, S/P PPM, diabetes, hypertension, S/P thyroidectomy resulting in hypothyroidism and hypoparathyroidism. Patient said since this evening 8:30 PM patient started to have chest discomfort. Patient feels dizzy at the beginning then started to have heart racing. Patient can feel chest pressure but denies chest pain. Patient denies nausea or shortness of breath. Patient has mild diaphoresis. Patient got to ER and was treated with nitroglycerin. Her chest discomfort has improved after treatment. When I saw patient, she still have mild chest discomfort. Patient had stress test 2 months ago, which was negative. Patient had LHC many years ago, which shows mild stenosis, no stent was placed. Patient had PPM placed around 1 months ago. Past Med Surg Social Fam HX - Past Medical History Medical history: atrial fibrillation, diabetes, fibromyalgia, GERD, hyperlipidemia, hypertension, kidney stones, thyroid disease, other Additional medical history: FLOOD'S PALSY,FIBROMYALGIA Psychiatric history: no psych history - Past Surgical History Surgical History: hysterectomy Additional surgical history: rectocele, bladder mesh, right knee scop, PACEMAKER ONLY - Social History Smoking Status: Never smoker Smokeless Tobacco Status: No Alcohol use: none Drug use: none - Family History Mother Living Status: Hx Family Cardiac Disorders: Yes (Afib) Father Living Status: Hx Family Cancer: Yes (bowel cancer) Internal Medicine - H&P: Meds Calcium Carbonate/Vitamin D3 [Calcium 600 + Vit D Softgel] 4 tab PO BID [History] Cranberry 800 mg PO QAM 08/18/15 [History] Levothyroxine [Synthroid] 100 mcg PO DAILY 08/18/15 [History] Omeprazole [PriLOSEC] 40 mg PO QAM 08/18/15 [History] Potassium Chloride [K-Tab ER] 10 meq PO BID 08/18/15 [History] Spironolactone [Aldactone] 25 mg PO QAM 08/18/15 [History] Ubidecarenone [Co Q10] 100 mg PO QAM 08/18/15 [History] metFORMIN [Glucophage] 500 mg PO BIDWM 08/18/15 [History] Apixaban [Eliquis] 5 mg PO BID 08/23/15 [History] Allopurinol [Zyloprim] 300 mg PO DAILY 09/02/17 [History] Iron 65 mg PO DAILY 09/02/17 [History] Magnesium Oxide [Mag-Ox] 500 mg PO BID 11/04/17 [History] Pravastatin Sodium [Pravachol] 40 mg PO DAILY 11/04/17 [History] Sotalol [Betapace] 80 mg PO Q12H #60 tablet 11/08/17 [Rx] 3 Allergy/AdvReac Type Severity Reaction Status Date / Time tetanus toxoid, adsorbed Allergy Hives Verified 12/04/17 22:11 ascorbic acid [From Fetrin] AdvReac Vomiting Verified 12/04/17 22:11 clarithromycin [From Biaxin] AdvReac HEART Verified 12/04/17 22:11 RACING Hydralazine AdvReac HEART Verified 12/04/17 22:11 RACING levofloxacin [From Levaquin] AdvReac HEART Verified 12/04/17 22:11 RACING lisinopril AdvReac HEART Verified 12/04/17 22:11 SKIPPING milnacipran [From Savella] AdvReac Vomiting Verified 12/04/17 22:11 prochlorperazine AdvReac STOMACH Verified 12/04/17 22:11 [From Compazine] PAIN vitamin B12 with intrinsic AdvReac Vomiting Verified 12/04/17 22:11 factor [From Fetrin] All Systems PM: A 10-system review of systems was performed and is negative for pertinent findings except as documented above in the HPI. - Constitutional General appearance: Present: A&O X 3, no acute distress, answers questions appropriately - Head Head exam: Present: atraumatic, normocephalic - Eye Eye exam: Present: PERRL, conjuntiva pink, sclera anicteric Pupils: Present: PERRL - Neck Neck exam general surgery: Present: supple, trachea midline. Absent: lymphadenopathy - Respiratory Respiratory exam: Present: CTAB. Absent: accessory muscle use, rales, rhonchi, wheezes - Cardiovascular Cardiovascular exam: Present: RRR, +S1, +S2. Absent: diastolic murmur, gallop, rubs, systolic murmur - GI/Abdominal GI/Abdominal exam: Present: normal bowel sounds, soft, no peritoneal signs. Absent: distended, tenderness - Extremities Exam Extremities exam: Present: warm, radial pulses palpable and symmetrical. Absent : calf tenderness, cyanotic, pedal edema - Neurological Exam Neurological exam: Present: CN II-XII intact, oriented X3, no focal deficits. Absent: pronater drift, facial droop, speech deficit - Skin Skin exam: Present: dry, intact Internal Med - H&P Results - EKG Data -: EKG Interpreted by Myself EKG shows normal: sinus rhythm Rate: normal - Assessment and plan (1) Chest discomfort Current Visit: Yes Status: Acute Assessment and plan: Patient has chest discomfort, respond to nitroglycerin. Need to rule out ACS. Other possibility includes symptomatic arrhythmia or PPM malfunction. - Place patient on continuous cardiac monitoring - Track 3 sets of troponin - Cardiology consult (2) Diabetes mellitus Current Visit: Yes Status: Acute Assessment and plan: Place patient on sliding scale insulin coverage Qualifiers: Diabetes mellitus type: type 2 Diabetes mellitus implant polisher insulin use: without alf use Diabetes mellitus complication status: without complication Qualified Code(s): E11.9 - Type 2 diabetes mellitus without complications (3) Hypertension Current Visit: Yes Status: Acute Assessment and plan: Patient is not on any anti-hypertensive medication at this point. Patient was placed on nitroglycerin paste from [facility]. Will closely monitor BP, if BP continues to high, may need to start anti-hypertensive medication. Qualifiers: Hypertension type: essential hypertension Qualified Code(s): I10 - Essential (primary) hypertension (4) Hypothyroidism Current Visit: Yes Status: Acute Assessment and plan: Continue home medications Synthroid 100 g per day Qualifiers: Hypothyroidism type: acquired Qualified Code(s): E03.9 - Hypothyroidism, unspecified (5) Hypoparathyroidism Current Visit: Yes Status: Acute Assessment and plan: Patient take calcium and vitamin D, will continue. Qualifiers: Hypoparathyroidism type: other hypoparathyroidism Qualified Code(s): E20.8 - Other hypoparathyroidism (6) DVT prophylaxis Current Visit: Yes Status: Acute Assessment and plan: Patient is on Eliquis. (7) PAF (paroxysmal atrial fibrillation) Current Visit: No Status: Acute Assessment and plan: Patient is on satolol. Right now sinus rhythm. Normal heart rate. Continue Eliquis for anticoagulation. - Time Spent With Patient Total time spent is greater than 50% in coordination of care (as documented) at patient's floor/unit and/or counseling patient: 40 minutes Greater than 35 minutes
[2017-12-05 03:51] LABS: Basophils % 0.5 %; Eosinophils # 0.1 K/mcL (0.0-0.6); Eosinophils % 1.5 %; Hematocrit 37.4 % (35.3-44.9); Hemoglobin 12.3 g/dL (11.5-15.4); Immature Granulocytes % 0.5 % (0-4); Lymphocytes # 1.8 K/mcL (0.6-4.6); Mean Corpuscular HGB Conc 32.9 g/dL (31.6-35.5); Mean Corpuscular Hemoglobin 30.4 pg (28.0-33.3); Mean Corpuscular Volume 92.3 fL (83.0-100.0); Mean Platelet Volume 9.6 fL (9.4-12.4); Monocytes # 0.6 K/mcL (0.0-1.3); Monocytes % 8.5 %; Neutrophils # 4.9 K/mcL (1.6-8.9); Platelet Count 225 K/mcL (140-400); Red Blood Count 4.05 M/mcL (3.82-4.97); Red Cell Distribution Width 13.6 % (11.5-14.5)
[2017-12-05 04:10] LABS: BUN/Creatinine Ratio 25 (6-26); Blood Urea Nitrogen 14 mg/dL (8-23); Calcium 8.6 mg/dL (8.6-10.3); Carbon Dioxide 26 mEq/L (23-29); Chloride 103 mEq/L (98-107); Glucose 153 mg/dL (70-105); Magnesium 1.5 mg/dL (1.6-2.6); Osmolality,Calculated 294 (280-300); Potassium 3.7 mEq/L (3.5-5.1); Sodium 140 mEq/L (136-145); Troponin I < 0.03 ng/mL (< 0.04); eGFR For African Americans > 60 (> 60); eGFR For Non-African Americans > 60 (> 60)
[2017-12-05] MEDS: Magnesium Oxide 400 MG TABLET PO SCH ×2 (08:13→21:21)
[2017-12-05] MEDS: Spironolactone 25 MG TABLET PO SCH (08:14)
[2017-12-05] MEDS: Apixaban 5 MG TABLET PO SCH ×2 (08:14→21:20)
[2017-12-05] MEDS: Insulin LISPRO 300 UNITS/3 ML VIAL SQ SCH ×3 (08:14→16:07)
--- NOTE | 2017-12-05 09:15 | Cardiology Consult Note ---
Date of Encounter: 12/05/17 Time of Encounter: 08:00 Assessment and Plan (1) PAF (paroxysmal atrial fibrillation) Current Visit: Yes Status: Acute Hx of PAF on Sotalol. Recent PPM placement for SSS. ECG: SR 98 BPM QT,QTc 357,412 ms Patient reports intermittent palpitations, appears to be ST/AT. Telemetry reviewed, avg HR=77 SR. No PAF noted. Will start Cardizem 120 mg daily--of note, recently discontinued (300 mg prior dose) to improve HR control. Will replace Mag (1.5) with IV rider, in addition to home mag ox. Recommend keeping >2.0 if able. Continue Eliquis for AC. (2) Chest discomfort Current Visit: Yes Status: Acute Atypical chest pain. No ischemic ECG changes. Troponin negative. Suspect secondary to severely elevated blood pressure. Pain free upon exam. Recent negative nuclear stress test September 2017. EF preserved. Recommend improved BP control, will add Cardizem 120 mg daily (recently discontinued). No further cardiac testing recommended at this time. Discussion w patient/family: The assessment and plan as outlined above was discussed with the patient and/or family members who expressed understanding and agreement. All questions were answered. Thank you for involving us in the care of your patient. Please call with any questions. The patient will be discussed and reviewed with Dr. Iyer; changes to be made accordingly. History of Present Illness Consult date: 12/05/17 Requesting physician: Ximena Kumar Consult reason: Chest pain Chief complaint: Chest pain History of present illness: Ms. Kimbrough is a 72 year old female with PMHx significant for PAF (Eliquis), SSS s/p PPM, DMII, HTN, HLD, and thyroid disease who presented to [place] ED with complaints of chest pain. Reports pain started nearly 1 hour before presentation while at rest. Chest pain described as midsternal, non-radiating, pressure/heaviness. Reports symptoms improved after NTG paste applied in the ED. Initial SBP >180 upon arrival to ED. Of note, recent admission for sotalol, s/p PPM for SSS; at that time cardizem was stopped. No ischemic ECG changes noted, troponin negative. ECG- SR 98 BPM QT/QTc 357,412 ms Prior CV testing: TTE 10/07/17: LVEF 55-60%, mild LVDD, no significant valvular dysfunction, normal wall motion Regadenoson nuclear 10/07/17: pharmacologic ECG negative, gated EF=70%, perfusion imagining negative for ischemia or infarct [facility] 2009: minimal CAD Past Med Surg Social Fam HX - Past Medical History Attestation: Yes The following information was validated with the patient. Source: patient Medical history: atrial fibrillation, diabetes, fibromyalgia, GERD, hyperlipidemia, hypertension, kidney stones, thyroid disease, other Additional medical history: FLOOD'S PALSY,FIBROMYALGIA Psychiatric history: no psych history - Past Surgical History Surgical History: hysterectomy Additional surgical history: rectocele, bladder mesh, right knee scop, PACEMAKER ONLY - Social History Smoking Status: Never smoker Smokeless Tobacco Status: No Alcohol use: none Drug use: none - Family History Mother Living Status: Hx Family Cardiac Disorders: Yes (Afib) Father Living Status: Hx Family Cancer: Yes (bowel cancer) Hx Family Musculoskeletal Disorders: Yes (parkensonchar) Medications and Allergies Calcium Carbonate/Vitamin D3 [Calcium 600 + Vit D Softgel] 4 tab PO BID [History] Cranberry 800 mg PO QAM 08/18/15 [History] Levothyroxine [Synthroid] 100 mcg PO DAILY 08/18/15 [History] Omeprazole [PriLOSEC] 40 mg PO QAM 08/18/15 [History] Potassium Chloride [K-Tab ER] 10 meq PO BID 08/18/15 [History] Spironolactone [Aldactone] 25 mg PO QAM 08/18/15 [History] Ubidecarenone [Co Q10] 100 mg PO QAM 08/18/15 [History] metFORMIN [Glucophage] 500 mg PO BIDWM 08/18/15 [History] Apixaban [Eliquis] 5 mg PO BID 08/23/15 [History] Allopurinol [Zyloprim] 300 mg PO DAILY 09/02/17 [History] Iron 65 mg PO DAILY 09/02/17 [History] Magnesium Oxide [Mag-Ox] 500 mg PO BID 11/04/17 [History] Pravastatin Sodium [Pravachol] 40 mg PO DAILY 11/04/17 [History] Sotalol [Betapace] 80 mg PO Q12H #60 tablet 11/08/17 [Rx] 3 Allergy/AdvReac Type Severity Reaction Status Date / Time tetanus toxoid, adsorbed Allergy Hives Verified 12/04/17 22:11 ascorbic acid [From Fetrin] AdvReac Vomiting Verified 12/04/17 22:11 clarithromycin [From Biaxin] AdvReac HEART Verified 12/04/17 22:11 RACING Hydralazine AdvReac HEART Verified 12/04/17 22:11 RACING levofloxacin [From Levaquin] AdvReac HEART Verified 12/04/17 22:11 RACING lisinopril AdvReac HEART Verified 12/04/17 22:11 SKIPPING milnacipran [From Savella] AdvReac Vomiting Verified 12/04/17 22:11 prochlorperazine AdvReac STOMACH Verified 12/04/17 22:11 [From Compazine] PAIN vitamin B12 with intrinsic AdvReac Vomiting Verified 12/04/17 22:11 factor [From Fetrin] All Systems Review: The remainder of the systems were reviewed and are negative - Cardiovascular Cardiovascular: as per HPI Physical Examination Vital Signs, Last 4 Hours Temp Pulse Resp BP Pulse Ox 12/05/17 07:10 98.1 F 71 16 128/79 97 12/05/17 05:19 98.4 F 76 18 132/75 96 General: Conversant, No Apparent Distress HEENT: Atraumatic, Normocephaly, Mucus Membranes Moist Neck: No JVD, Normal carotid pulses Cardiac: Reg Rate and Rhythm, Normal S1 and S2, No Murmur Lungs: Normal Breath Sounds, No Wheeze, Rales, Rhonchi Neuro: Alert and responsive, No focal deficits noted Abdomen: Soft, Non-Tender Skin: No rashes noted on visualized skin Musculoskeletal: No Chest Wall Tenderness Extremities: No Clubbing, No Cyanosis, No Edema, Normal Pulses Results 12/05/17 03:21 12/05/17 03:21 Lab Results 12/05/17 12/05/17 03:21 03:21 WBC 7.5 Hgb 12.3 Hct 37.4 Plt Count 225 Sodium 140 Potassium 3.7 Chloride 103 Carbon Dioxide 26 BUN 14 Creatinine 0.55 L Glucose 153 H Calcium 8.6 Magnesium 1.5 L Troponin I < 0.03 Active Medications Acetaminophen (Tylenol) 650 mg PO Q6HR PRN PRN Reason: Mild Pain/Fever Stop: 06/06/18 02:05 Apixaban (Eliquis) 5 mg PO BID [facility] Stop: 06/06/18 09:01 Last Admin: 12/05/17 08:14 Dose: 5 mg Calcium Carbonate (Tums) 2,000 mg PO BID [facility] Stop: 06/06/18 09:01 Last Admin: 12/05/17 08:13 Dose: 2,000 mg Dextrose/Water (Dextrose 50% (Syg)) 25 ml IVP AD PRN PRN Reason: Hypoglycemia Stop: 06/06/18 02:10 Diltiazem HCl (Cardizem Cd) 120 mg PO DAILY [facility] Stop: 06/06/18 09:16 Glucagon (Glucagen) 1 mg IM ONCE PRN PRN Reason: Hypoglycemia Stop: 06/06/18 02:10 Glucose (Gluctose) 15 gm PO ONCE PRN PRN Reason: Hypoglycemia Stop: 06/06/18 02:10 Glucose (Gluctose) 30 gm PO ONCE PRN PRN Reason: Hypoglycemia Stop: 06/06/18 02:10 Dextrose (Dextrose 5%) 1,000 mls @ 100 mls/hr IVC .Q10H PRN PRN Reason: HYPOGLYCEMIA Stop: 06/06/18 02:10 Magnesium Sulfate (Magnesium Sulfate Premix 2gm/50ml) 2 gm in 50 mls @ 25 mls/ hr IVPB ONCE ONE Stop: 12/05/17 11:11 Insulin Human Lispro (Humalog) 0 units SQ HS [facility] PRN Reason: Protocol Stop: 06/06/18 21:01 Insulin Human Lispro (Humalog) 0 units SQ TIDAC [facility] PRN Reason: Protocol Stop: 06/06/18 07:31 Last Admin: 12/05/17 08:14 Dose: Not Given Levothyroxine Sodium (Synthroid) 100 mcg PO DAILY@0630 [facility] Stop: 06/06/18 06:31 Last Admin: 12/05/17 06:45 Dose: 100 mcg Magnesium Oxide (Mag-Ox) 400 mg PO BID [facility] PRN Reason: Protocol Stop: 06/06/18 09:01 Last Admin: 12/05/17 08:13 Dose: 400 mg Naloxone HCl (Narcan) 0.4 mg IVP Q2MIN PRN PRN Reason: SEE COMMENTS Stop: 06/06/18 02:05 Nitroglycerin (Nitroglycerin) 1 inch TP Q6HNTG PRN PRN Reason: Chest Pain Stop: 06/06/18 02:16 Omeprazole (Prilosec) 40 mg PO QAM [facility] Stop: 06/06/18 09:01 Last Admin: 12/05/17 08:13 Dose: 40 mg Potassium Chloride (Potassium Chloride) 10 meq PO BID [facility] Stop: 06/06/18 09:01 Last Admin: 12/05/17 08:13 Dose: 10 meq Sotalol HCl (Betapace) 80 mg PO Q12H [facility] Stop: 06/06/18 09:01 Spironolactone (Aldactone) 25 mg PO QAM [facility] Stop: 06/06/18 09:01 Last Admin: 12/05/17 08:14 Dose: 25 mg - Imaging and Cardiology Stress Test: report reviewed Echo: report reviewed Cardiac cath: report reviewed Other Results: 12 hour tele: avg HR=77 SR. Few episodes of AT noted. No PAF - EKG Interpretation EKG results cardiology: personally reviewed Consult Discharge Plan - Plan Referrals: Val Joseph, ANIMAL BEHAVIORIST [Primary Care Provider] -
[2017-12-05] MEDS: Diltiazem CD (24hr) 120 MG CAPSULE PO SCH (10:45)
[2017-12-05] MEDS: Acetaminophen 325 MG TABLET PO PRN ×2 (14:36→23:17)
[2017-12-05] MEDS ORDERED: Insulin LISPRO 300 UNITS/3 ML VIAL SQ SCH (21:00)
[2017-12-06 05:02] LABS: Potassium 4.1 mEq/L (3.5-5.1)
[2017-12-06] MEDS: Insulin LISPRO 300 UNITS/3 ML VIAL SQ SCH ×2 (07:45→11:34)
[2017-12-06] MEDS: Diltiazem CD (24hr) 120 MG CAPSULE PO SCH (07:55)
[2017-12-06] MEDS: Magnesium Oxide 400 MG TABLET PO SCH (07:56)
[2017-12-06] MEDS: Apixaban 5 MG TABLET PO SCH (07:56)
[2017-12-06] MEDS: Spironolactone 25 MG TABLET PO SCH (07:56)
--- NOTE | 2017-12-06 10:55 | Cardiology Progress Note ---
Date of Encounter: 12/06/17 Time of Encounter: 10:30 Assessment and Plan (1) PAF (paroxysmal atrial fibrillation) Current Visit: Yes Status: Acute Hx of PAF on Sotalol. Recent PPM placement for SSS. ECG: SR 98 BPM QT,QTc 357,412 ms Patient reports intermittent palpitations, appears to be ST/AT. Telemetry reviewed overnight avg HR=67 SR. No PAF noted, no episodes of AT noted. Continue Cardizem 120 mg daily--of note, recently discontinued (300 mg prior dose) to improve HR control. Mag normal s/p IV rider. Device check completed this AM--normal functioning PPM, no events recorded prior to admission. No high atrial rates recorded. 1 ventricular episode recorded on 11/20/17, lasted [address] Dean. No further inpt recommendations, will sign-off. Continue Eliquis for AC. (2) Chest discomfort Current Visit: Yes Status: Acute Atypical chest pain. No ischemic ECG changes. Troponin negative. Suspect secondary to severely elevated blood pressure. Pain free upon exam. Recent negative nuclear stress test September 2017. EF preserved. Continue Cardizem 120 mg daily (recently discontinued). No further cardiac testing recommended at this time. Discussion w patient/family: The assessment and plan as outlined above was discussed with the patient and/or family members who expressed understanding and agreement. All questions were answered. Thank you for involving us in the care of your patient. Please call with any questions. The patient will be discussed and reviewed with Dr. Dean; changes to be made accordingly. Subjective Principal diagnosis: Palpitations Interval history: Seen and examined. No events reported overnight. Patient reports she feels much better. No significant palpitations reported, no chest pain. Blood pressure control seems to have improved with addition of low dose cardizem. Objective Vital Signs, Last 4 Hours Temp Pulse Resp BP Pulse Ox 12/06/17 07:49 129/76 12/06/17 07:03 97.5 F L 66 16 92/62 96 General: Conversant, No Apparent Distress HEENT: Atraumatic, Normocephaly Cardiac: Reg Rate and Rhythm, Normal S1 and S2 Lungs: Normal Breath Sounds Neuro: Alert and responsive Abdomen: Soft Skin: No rashes noted on visualized skin Musculoskeletal: No Chest Wall Tenderness Extremities: No Edema, Normal Pulses Results 12/05/17 03:21 12/06/17 04:27 Lab Results 12/05/17 12/06/17 10:23 04:27 Sodium 140 Potassium 4.1 Chloride 105 Carbon Dioxide 27 Magnesium 2.0 Troponin I < 0.03 Active Medications Acetaminophen (Tylenol) 650 mg PO Q6HR PRN PRN Reason: Mild Pain/Fever Stop: 06/06/18 02:05 Last Admin: 12/05/17 23:17 Dose: 650 mg Apixaban (Eliquis) 5 mg PO BID [facility] Stop: 06/06/18 09:01 Last Admin: 12/06/17 07:56 Dose: 5 mg Calcium Carbonate (Tums) 2,000 mg PO BID [facility] Stop: 06/06/18 09:01 Last Admin: 12/06/17 07:56 Dose: 2,000 mg Dextrose/Water (Dextrose 50% (Syg)) 25 ml IVP AD PRN PRN Reason: Hypoglycemia Stop: 06/06/18 02:10 Diltiazem HCl (Cardizem Cd) 120 mg PO DAILY [facility] Stop: 06/06/18 09:16 Last Admin: 12/06/17 07:55 Dose: 120 mg Glucagon (Glucagen) 1 mg IM ONCE PRN PRN Reason: Hypoglycemia Stop: 06/06/18 02:10 Glucose (Gluctose) 15 gm PO ONCE PRN PRN Reason: Hypoglycemia Stop: 06/06/18 02:10 Glucose (Gluctose) 30 gm PO ONCE PRN PRN Reason: Hypoglycemia Stop: 06/06/18 02:10 Dextrose (Dextrose 5%) 1,000 mls @ 100 mls/hr IVC .Q10H PRN PRN Reason: HYPOGLYCEMIA Stop: 06/06/18 02:10 Insulin Human Lispro (Humalog) 0 units SQ HS [facility] PRN Reason: Protocol Stop: 06/06/18 21:01 Last Admin: 12/05/17 23:12 Dose: Not Given Insulin Human Lispro (Humalog) 0 units SQ TIDAC [facility] PRN Reason: Protocol Stop: 06/06/18 07:31 Last Admin: 12/06/17 07:45 Dose: Not Given Levothyroxine Sodium (Synthroid) 100 mcg PO DAILY@0630 [facility] Stop: 06/06/18 06:31 Last Admin: 12/06/17 05:19 Dose: 100 mcg Magnesium Oxide (Mag-Ox) 400 mg PO BID [facility] PRN Reason: Protocol Stop: 06/06/18 09:01 Last Admin: 12/06/17 07:56 Dose: 400 mg Naloxone HCl (Narcan) 0.4 mg IVP Q2MIN PRN PRN Reason: SEE COMMENTS Stop: 06/06/18 02:05 Nitroglycerin (Nitroglycerin) 1 inch TP Q6HNTG PRN PRN Reason: Chest Pain Stop: 06/06/18 02:16 Omeprazole (Prilosec) 40 mg PO QAM [facility] Stop: 06/06/18 09:01 Last Admin: 12/06/17 07:55 Dose: 40 mg Potassium Chloride (Potassium Chloride) 10 meq PO BID [facility] Stop: 06/06/18 09:01 Last Admin: 12/06/17 07:55 Dose: 10 meq Sotalol HCl (Betapace) 80 mg PO Q12H [facility] Stop: 06/06/18 09:01 Last Admin: 12/06/17 09:27 Dose: 80 mg Spironolactone (Aldactone) 25 mg PO QAM [facility] Stop: 06/06/18 09:01 Last Admin: 12/06/17 07:56 Dose: 25 mg - Imaging and Cardiology Echo: report reviewed Other Results: 12 hour tele: avg HR=67. No PAF noted. - EKG Interpretation EKG results cardiology: personally reviewed Consult Discharge Plan - Plan Instructions: Atrial Fibrillation (DC), Chest Pain (DC) Referrals: Val Joseph, CUSTODIAL OFFICER [Primary Care Provider] - (web request 12/05/2017)
[2017-12-06 15:08] VITALS: BP 110/72
--- NOTE | 2017-12-06 16:33 | Discharge Summary ---
- NOTES TO OUTPATIENT PROVIDER Notes to Outpatient Provider: f/u with pcp in 1 week. f/u limnologist d/c instructions and appointment as advised. Date of Encounter: 12/06/17 Time of Encounter: 16:37 - Discharge Diagnosis (1) PAF (paroxysmal atrial fibrillation) Priority: Primary Status: Acute Assessment and Plan: Controlled rate after adding diltiazem CD 120 mg daily along with continuation of satolol. Continue Eliquis for anticoagulation. Consulted limnologist who did check device with normal functioning PPM. Lock Technician's okay to discharge patient home from cardiac standpoint and follow-up on OPD basis. Underlying electrolyte imbalance corrected. (2) Chest discomfort Priority: Primary Status: Acute Assessment and Plan: Atypical chest pain but no active pain at this time. Troponin negative. Most likely due to elevated blood pressure. Negative nuclear stress test done September 2017 with EF preserved. Continue Cardizem 120 mg daily . (3) Diabetes mellitus Priority: Secondary Status: Acute Assessment and Plan: Continue home medicine Qualifiers: Diabetes mellitus type: type 2 Diabetes mellitus nursing home insulin use: without exterminator helper termite use Diabetes mellitus complication status: without complication Qualified Code(s): E11.9 - Type 2 diabetes mellitus without complications (4) Hypertension Priority: Secondary Status: Acute Assessment and Plan: Normal blood pressure at the time of discharge Qualifiers: Hypertension type: essential hypertension Qualified Code(s): I10 - Essential (primary) hypertension (5) Hypothyroidism Priority: Secondary Status: Acute Assessment and Plan: Continue home medications Synthroid 100 g per day Qualifiers: Hypothyroidism type: acquired Qualified Code(s): E03.9 - Hypothyroidism, unspecified (6) Hypoparathyroidism Priority: Secondary Status: Acute Assessment and Plan: Patient take calcium and vitamin D, will continue. Qualifiers: Hypoparathyroidism type: other hypoparathyroidism Qualified Code(s): E20.8 - Other hypoparathyroidism Hospital course: Ms. Kimbrough is a 72 year old female patient got admitted for chest discomfort and PAF. Serial troponin has been negative. Lock Technician was consulted and a started on Cardizem along with continuation of sotalol and a lipase. Underlying electrolyte was corrected. Patient was symptom free and DPM were checked with no concerns. Lock Technician's okay to discharge patient home from cardiac standpoint. At the time of discharge patient is clinically stable, ambulating well and tolerating by mouth diet with normal vitals. Discharge discussed with: patient, nurse - Time Spent with Patient Total time spent providing and/or coordinating discharge services: - Discharge Medications Home Medications: Calcium Carbonate/Vitamin D3 [Calcium 600 + Vit D Softgel] 4 tab PO BID [History] Cranberry 800 mg PO QAM 08/18/15 [History] Levothyroxine [Synthroid] 100 mcg PO DAILY 08/18/15 [History] Potassium Chloride [K-Tab ER] 20 meq PO BID 08/18/15 [History] Spironolactone [Aldactone] 25 mg PO QAM 08/18/15 [History] Ubidecarenone [Co Q10] 100 mg PO QAM 08/18/15 [History] metFORMIN [Glucophage] 500 mg PO BIDWM 08/18/15 [History] Apixaban [Eliquis] 5 mg PO BID 08/23/15 [History] Allopurinol [Zyloprim] 300 mg PO DAILY 09/02/17 [History] Iron 65 mg PO DAILY 09/02/17 [History] Magnesium Oxide [Mag-Ox] 500 mg PO BID 11/04/17 [History] Pravastatin Sodium [Pravachol] 40 mg PO DAILY 11/04/17 [History] Sotalol [Betapace] 80 mg PO Q12H #60 tablet 11/08/17 [Rx] Omeprazole [PriLOSEC] 40 mg PO BID 12/05/17 [History] Allergies/Adverse Reactions: 3 Allergy/AdvReac Type Severity Reaction Status Date / Time tetanus toxoid, adsorbed Allergy Hives Verified 12/04/17 22:11 ascorbic acid [From Fetrin] AdvReac Vomiting Verified 12/04/17 22:11 clarithromycin [From Biaxin] AdvReac HEART Verified 12/04/17 22:11 RACING Hydralazine AdvReac HEART Verified 12/04/17 22:11 RACING levofloxacin [From Levaquin] AdvReac HEART Verified 12/04/17 22:11 RACING lisinopril AdvReac HEART Verified 12/04/17 22:11 SKIPPING milnacipran [From Savella] AdvReac Vomiting Verified 12/04/17 22:11 prochlorperazine AdvReac STOMACH Verified 12/04/17 22:11 [From Compazine] PAIN vitamin B12 with intrinsic AdvReac Vomiting Verified 12/04/17 22:11 factor [From Fetrin] Date of admission: 12/05/17 01:06 Primary care physician: Val Joseph CNP Consults: 12/05/17 02:10 Consult to Cardiology [CONS] Routine Comment: Consulting Provider: Cardiology Siomara Reason for Consult: Chest pressure, recent PPM placed, Hx of A Fib on satolol. Cardio called by [facility]. Call Completed: Yes - Constitutional Vitals: Temp Pulse Resp BP Pulse Ox 98.3 F 64 16 110/72 94 12/06/17 15:08 12/06/17 15:08 12/06/17 15:08 12/06/17 15:08 12/06/17 15:08 General appearance: Present: A&O X 3, no acute distress, answers questions appropriately Exam: General appearance: No acute distress, A&O X 3 Head exam: Atraumatic Eye exam: EOMI, PERRLA ENT exam: Moist oral mucosa Neck nontender, supple Respiratory exam: Clear to auscultation bilaterally Cardiovascular exam: Regular rate and rhythm, no systolic murmur Abdominal exam: Soft, nontender, nondistended, positive bowel sounds Extremities exam: No calf tenderness, no pedal edema Present: Neurological exam: Alert, awake, oriented 3, CN II-XII intact, no focal deficits. No facial droop. Normal speech. Normal gait. Romberg sign negative - Patient Status Disposition: Home, Self-Care Condition: Good Overall status at discharge: patient is back to baseline - Discharge Instructions Instructions: Atrial Fibrillation (DC), Chest Pain (DC) Follow Up With: Val Joseph CNP [Primary Care Provider] - (web request 12/05/2017) - Diet and Activity Activity: increase activity as tolerated Diet: low fat, low cholesterol, low salt diet
== END 2017-12-06 17:39 | disposition home or self-care (01) ==
LOC: 2ANU → SUATTDRO 01:06
PROVIDERS: ADMIT Internal Medicine; ATTEND Internal Medicine

== ENCOUNTER 2019-05-27 12:14 | Inpatient (IN) ==
[2019-05-27] MEDS ORDERED: Isovue-370 500 ML BOTTLE IVP ONE (12:24)
[2019-05-27 13:04] LABS: Basophils % 0.2 %; Eosinophils # 0.1 K/mcL (0.0-0.6); Eosinophils % 0.7 %; Hematocrit 42.1 % (35.3-44.9); Hemoglobin 13.9 g/dL (11.5-15.4); Immature Granulocytes % 0.4 % (0-4); Lymphocytes # 1.7 K/mcL (0.6-4.6); Lymphocytes % 15.9 %; Mean Platelet Volume 9.5 fL (9.4-12.4); Monocytes # 0.9 K/mcL (0.0-1.3); Monocytes % 8.6 %; Platelet Count 284 K/mcL (140-400); Red Blood Count 4.34 M/mcL (3.82-4.97); Red Cell Distribution Width 13.1 % (11.5-14.5); Segmented Neutrophils % 74.2 %; White Blood Count 10.7 K/mcL (4.3-11.1)
[2019-05-27 13:29] LABS: Alanine Aminotransferase 16 Units/L (7-52); Albumin 4.6 g/dL (3.5-5.7); Albumin/Globulin Ratio 1.4 (1.1-2.2); Alkaline Phosphatase 86 Units/L (34-104); Aspartate Amino Transferase 15 Units/L (13-39); BUN/Creatinine Ratio 23 (6-26); Bilirubin,Total 0.6 mg/dL (0.3-1.0); Blood Urea Nitrogen 20 mg/dL (8-23); Calcium 8.9 mg/dL (8.6-10.3); Carbon Dioxide 28 mEq/L (23-29); Chloride 98 mEq/L (98-107); Globulin 3.2 g/dL (2.4-3.5); Glucose 175 mg/dL (70-105); Osmolality,Calculated 293 (280-300); Potassium 3.8 mEq/L (3.5-5.1); Sodium 138 mEq/L (136-145); Total Protein 7.8 g/dL (6.4-8.9); eGFR For African Americans > 60 (> 60); eGFR For Non-African Americans > 60 (> 60)
[2019-05-27] MEDS ORDERED: cefTRIAXone 1,000 MG in Water for inj. (sterile) 10 ML IVP ONE (15:05)
[2019-05-27] MEDS ORDERED: *HR* OxyCODONE/APAP 5/325 TABLET PO ONE (15:12)
[2019-05-27] MEDS ORDERED: Naloxone 0.4 MG/ML INJ IVP PRN (16:14)
[2019-05-27] MEDS ORDERED: D5% in Water 1,000 ML IVC PRN (16:23)
[2019-05-27] MEDS ORDERED: Dextrose Gel 15 GM/37.5 ML TUBE PO PRN ×2 (16:23)
[2019-05-27] MEDS ORDERED: *HR* Dextrose 50 % in Water (Syg) 50 ML SYRINGE IVP PRN (16:23)
[2019-05-27] MEDS: Ondansetron 4 MG/2 ML VIAL IVP PRN (17:43)
[2019-05-27] MEDS: Insulin LISPRO 300 UNITS/3 ML VIAL SQ SCH ×2 (18:21→20:12)
[2019-05-27] MEDS: Magnesium Oxide 400 MG TABLET PO SCH (20:23)
[2019-05-27] MEDS: Apixaban 5 MG TABLET PO SCH (20:23)
[2019-05-27] MEDS: Acetaminophen 325 MG TABLET PO PRN (21:45)
[2019-05-28] MEDS: *HR* HYDROcodone/Acet 5/325 mg TABLET PO PRN ×3 (03:08→16:58)
[2019-05-28 05:56] LABS: Basophils % 0.5 %; Eosinophils # 0.1 K/mcL (0.0-0.6); Eosinophils % 1.3 %; Hematocrit 36.7 % (35.3-44.9); Immature Granulocytes % 0.2 % (0-4); Lymphocytes # 2.2 K/mcL (0.6-4.6); Lymphocytes % 26.2 %; Mean Corpuscular HGB Conc 33.2 g/dL (31.6-35.5); Mean Corpuscular Hemoglobin 31.4 pg (28.0-33.3); Mean Corpuscular Volume 94.3 fL (83.0-100.0); Mean Platelet Volume 9.7 fL (9.4-12.4); Monocytes # 0.8 K/mcL (0.0-1.3); Neutrophils # 5.1 K/mcL (1.6-8.9); Platelet Count 251 K/mcL (140-400); Red Blood Count 3.89 M/mcL (3.82-4.97); Red Cell Distribution Width 13.2 % (11.5-14.5); Segmented Neutrophils % 61.8 %; White Blood Count 8.3 K/mcL (4.3-11.1)
[2019-05-28 05:58] LABS: Hemoglobin 12.2 g/dL (11.5-15.4)
[2019-05-28 06:15] LABS: BUN/Creatinine Ratio 25 (6-26); Blood Urea Nitrogen 20 mg/dL (8-23); Calcium 7.8 mg/dL (8.6-10.3); Carbon Dioxide 27 mEq/L (23-29); Chloride 101 mEq/L (98-107); Glucose 127 mg/dL (70-105); Osmolality,Calculated 290 (280-300); Potassium 3.7 mEq/L (3.5-5.1); Sodium 138 mEq/L (136-145); eGFR For African Americans > 60 (> 60); eGFR For Non-African Americans > 60 (> 60)
[2019-05-28] MEDS ORDERED: Cholecalciferol (D-3) 1,000 UNIT (25MCG) TABLET PO SCH (09:00)
[2019-05-28] MEDS ORDERED: NON-FORMULARY MEDICATION 1 EACH EACH (Ubidecarenone [Co Q-10] 100 MG) PO SCH (09:00)
[2019-05-28] MEDS: Insulin LISPRO 300 UNITS/3 ML VIAL SQ SCH ×4 (09:18→20:56)
[2019-05-28] MEDS: Spironolactone 25 MG TABLET PO SCH (09:20)
[2019-05-28] MEDS: Apixaban 5 MG TABLET PO SCH ×2 (09:20→20:56)
[2019-05-28] MEDS: Magnesium Oxide 400 MG TABLET PO SCH ×2 (09:20→20:56)
[2019-05-28] MEDS: Diltiazem CD (24hr) 240 MG CAPSULE PO SCH (15:41)
[2019-05-28] MEDS: cefTRIAXone 1,000 MG in 0.9 % Sodium Chloride Mini Bag 100 ML IVPB SCH (15:41)
[2019-05-28] MEDS: Ondansetron 4 MG/2 ML VIAL IVP PRN (15:42)
[2019-05-28] MEDS: Acetaminophen 325 MG TABLET PO PRN (23:02)
[2019-05-29 03:04] LABS: Vancomycin,Trough 17 mcg/mL (5-10)
[2019-05-29 04:12] LABS: BUN/Creatinine Ratio 26 (6-26); Blood Urea Nitrogen 25 mg/dL (8-23); Calcium 7.7 mg/dL (8.6-10.3); Carbon Dioxide 24 mEq/L (23-29); Chloride 104 mEq/L (98-107); Glucose 142 mg/dL (70-105); Osmolality,Calculated 289 (280-300); Sodium 136 mEq/L (136-145); eGFR For African Americans > 60 (> 60); eGFR For Non-African Americans 58 (> 60)
[2019-05-29] MEDS: *HR* HYDROcodone/Acet 5/325 mg TABLET PO PRN ×3 (04:47→21:34)
[2019-05-29] MEDS: Spironolactone 25 MG TABLET PO SCH (09:13)
[2019-05-29] MEDS: Diltiazem CD (24hr) 240 MG CAPSULE PO SCH (09:13)
[2019-05-29] MEDS: Magnesium Oxide 400 MG TABLET PO SCH ×2 (09:13→21:32)
[2019-05-29] MEDS: Apixaban 5 MG TABLET PO SCH ×2 (09:13→21:32)
[2019-05-29] MEDS: Cholecalciferol (D-3) 1,000 UNIT (25MCG) TABLET PO SCH ×2 (09:13→21:32)
[2019-05-29] MEDS: Insulin LISPRO 300 UNITS/3 ML VIAL SQ SCH ×4 (09:13→21:35)
[2019-05-29] MEDS: cefTRIAXone 1,000 MG in 0.9 % Sodium Chloride Mini Bag 100 ML IVPB SCH (15:27)
[2019-05-30 05:02] LABS: BUN/Creatinine Ratio 25 (6-26); Blood Urea Nitrogen 25 mg/dL (8-23); Calcium 7.7 mg/dL (8.6-10.3); Carbon Dioxide 28 mEq/L (23-29); Chloride 100 mEq/L (98-107); Glucose 142 mg/dL (70-105); Osmolality,Calculated 301 (280-300); Potassium 4.1 mEq/L (3.5-5.1); Sodium 142 mEq/L (136-145); eGFR For African Americans > 60 (> 60); eGFR For Non-African Americans 55 (> 60)
[2019-05-30 08:05] VITALS: BP 123/60
[2019-05-30] MEDS ORDERED: predniSONE 20 MG TABLET PO SCH (09:00)
[2019-05-30] MEDS: Acetaminophen 325 MG TABLET PO PRN (09:11)
[2019-05-30] MEDS: Magnesium Oxide 400 MG TABLET PO SCH (09:12)
[2019-05-30] MEDS: Insulin LISPRO 300 UNITS/3 ML VIAL SQ SCH ×2 (09:12→12:49)
[2019-05-30] MEDS: Diltiazem CD (24hr) 240 MG CAPSULE PO SCH (09:12)
[2019-05-30] MEDS: Spironolactone 25 MG TABLET PO SCH (09:12)
[2019-05-30] MEDS: Apixaban 5 MG TABLET PO SCH (09:12)
[2019-05-30] MEDS: Cholecalciferol (D-3) 1,000 UNIT (25MCG) TABLET PO SCH (09:12)
[2019-05-30] MEDS: cefTRIAXone 1,000 MG in 0.9 % Sodium Chloride Mini Bag 100 ML IVPB SCH (14:13)
[2019-05-30] MEDS ORDERED: Aminoglycoside Consult 1 EACH MC ONE (18:06)
== END 2019-05-30 18:07 | disposition home or self-care (01) | DRG 121 ==
LOC: EMEROOARM 12:14 → 3BNU 12:14 → SUATTDRO 16:36 → 3BNU 17:18
PROVIDERS: ADMIT Internal Medicine; ATTEND Internal Medicine

== ENCOUNTER 2020-10-24 21:02 | Inpatient (IN) ==
[2020-10-25] MEDS ORDERED: Melatonin 3 MG TABLET PO PRN (01:40)
[2020-10-25] MEDS ORDERED: Ondansetron 4 MG/2 ML VIAL IVP PRN (01:40)
[2020-10-25] MEDS ORDERED: Naloxone 0.4 MG/ML INJ IVP PRN (01:40)
[2020-10-25 02:40] LABS: BUN/Creatinine Ratio 23 (6-26); Blood Urea Nitrogen 18 mg/dL (8-23); Carbon Dioxide 21 mEq/L (23-29); Chloride 100 mEq/L (98-107); Glucose 82 mg/dL (70-105); Osmolality,Calculated 275 (280-300); Potassium 4.3 mEq/L (3.5-5.1); Sodium 132 mEq/L (136-145); eGFR For African Americans > 60 (> 60); eGFR For Non-African Americans > 60 (> 60)
[2020-10-25] MEDS ORDERED: *HR* Dextrose 50 % in Water (Vial) 50 ML VIAL IVP PRN (04:53)
[2020-10-25] MEDS ORDERED: Dextrose Gel 15 GM/37.5 ML TUBE PO PRN ×2 (04:53)
[2020-10-25] MEDS ORDERED: D5% in Water 1,000 ML IVC PRN (04:53)
[2020-10-25] MEDS: DilTIAZem CD (24hr) 240 MG CAP.ER.24H PO SCH (08:16)
[2020-10-25] MEDS: Apixaban 5 MG TABLET PO SCH ×2 (08:16→20:50)
[2020-10-25] MEDS: predniSONE 1 MG TABLET PO SCH (08:16)
[2020-10-25] MEDS: Insulin LISPRO 300 UNITS/3 ML VIAL SUBQ SCH ×3 (08:17→19:28)
[2020-10-25 08:28] LABS: Hematocrit 40.1 % (35.3-44.9); Hemoglobin 12.6 g/dL (11.5-15.4); Mean Corpuscular HGB Conc 31.4 g/dL (31.6-35.5); Mean Corpuscular Hemoglobin 30.1 pg (28.0-33.3); Mean Corpuscular Volume 95.9 fL (83.0-100.0); Platelet Count 412 K/mcL (140-400); Red Blood Count 4.18 M/mcL (3.82-4.97); Red Cell Distribution Width 13.7 % (11.5-14.5)
[2020-10-25 09:00] LABS: Eosinophils # 0.3 K/mcL (0.0-0.6); Lymphocytes # 1.8 K/mcL (0.6-4.6); Monocytes # 0.9 K/mcL (0.0-1.3); Neutrophils # 11.1 K/mcL (1.6-8.9); Platelet Estimate Increased (Normal)
[2020-10-25 11:39] LABS: Adenovirus Not Detected (Not Detect); Bordetella Pertussis Not Detected (Not Detect); Chlamydophila pneumoniae Not Detected (Not Detect); Coronavirus 229E Not Detected (Not Detect); Coronavirus HKU1 Not Detected (Not Detect); Coronavirus NL63 Not Detected (Not Detect); Coronavirus OC43 Not Detected (Not Detect); Human Metapneumovirus Not Detected (Not Detect); Human Rhinovirus/Enterovirus Not Detected (Not Detect); Influenza A Subtype 2009 H1 Not Detected (Not Detect); Influenza B Not Detected (Not Detect); Mycoplasma pneumoniae Not Detected (Not Detect); Parainfluenza Virus 1 Not Detected (Not Detect); Parainfluenza Virus 2 Not Detected (Not Detect); Parainfluenza Virus 3 Not Detected (Not Detect); Parainfluenza Virus 4 Not Detected (Not Detect); Respiratory Syncytial Virus Not Detected (Not Detect); SARS-CoV-2 Not Detected (Not Detect)
[2020-10-25 11:48] LABS: Alanine Aminotransferase 78 Units/L (7-52); Albumin 3.2 g/dL (3.5-5.7); Alkaline Phosphatase 187 Units/L (34-104); Aspartate Amino Transferase 74 Units/L (13-39); BUN/Creatinine Ratio 20 (6-26); Bilirubin,Total 0.5 mg/dL (0.3-1.0); Blood Urea Nitrogen 19 mg/dL (8-23); Calcium 8.1 mg/dL (8.6-10.3); Carbon Dioxide 20 mEq/L (23-29); Chloride 99 mEq/L (98-107); Globulin 3.3 g/dL (2.4-3.5); Glucose 150 mg/dL (70-105); Magnesium 1.8 mg/dL (1.6-2.6); Osmolality,Calculated 275 (280-300); Potassium 4.2 mEq/L (3.5-5.1); Sodium 130 mEq/L (136-145); Total Protein 6.5 g/dL (6.4-8.9); eGFR For African Americans > 60 (> 60); eGFR For Non-African Americans 57 (> 60)
[2020-10-25 16:48] LABS: Bacteria,Urine Few per hpf (None-Few); Bilirubin,Urine Negative (Negative); Blood,Urine Moderate (Negative); Clarity,Urine Clear (Clear); Color,Urine Light-Yellow (Yellow); Glucose,Urine (UA) Normal (Normal); Ketones,Urine Negative (Negative); Leukocyte Esterase,Urine Negative (Negative); Mucus,Urine Few per lpf (None-Few); Nitrite,Urine Negative (Negative); Protein,Urine Trace mg/dL (Neg-Trace); Specific Gravity,Urine 1.017 (1.010-1.025); Squamous Epithelial Cell,Urine Few per hpf (None-Few); Urobilinogen,Urine Normal (Normal); WBC,Urine 0-3 per hpf (0-3)
[2020-10-25] MEDS: Pregabalin 75 MG CAPSULE PO SCH (20:50)
[2020-10-26] MEDS: Insulin LISPRO 300 UNITS/3 ML VIAL SUBQ SCH ×4 (00:21→17:38)
[2020-10-26 03:31] LABS: Hematocrit 37.7 % (35.3-44.9); Hemoglobin 12.3 g/dL (11.5-15.4); Mean Corpuscular HGB Conc 32.6 g/dL (31.6-35.5); Mean Corpuscular Hemoglobin 30.4 pg (28.0-33.3); Mean Corpuscular Volume 93.3 fL (83.0-100.0); Mean Platelet Volume 9.5 fL (9.4-12.4); Platelet Count 456 K/mcL (140-400); Red Blood Count 4.04 M/mcL (3.82-4.97); Red Cell Distribution Width 13.5 % (11.5-14.5); White Blood Count 14.8 K/mcL (4.3-11.1)
[2020-10-26 03:51] LABS: Alanine Aminotransferase 74 Units/L (7-52); Albumin 3.1 g/dL (3.5-5.7); Alkaline Phosphatase 152 Units/L (34-104); Aspartate Amino Transferase 61 Units/L (13-39); BUN/Creatinine Ratio 22 (6-26); Bilirubin,Total 0.5 mg/dL (0.3-1.0); Blood Urea Nitrogen 17 mg/dL (8-23); Calcium 7.9 mg/dL (8.6-10.3); Carbon Dioxide 22 mEq/L (23-29); Chloride 101 mEq/L (98-107); Chol/HDL Ratio 8.3 (0-4.9); Cholesterol 132 mg/dL (< 200); Globulin 3.2 g/dL (2.4-3.5); Glucose 112 mg/dL (70-105); HDL Cholesterol 16 mg/dL (40-59); LDL Cholesterol,Calculated 91 mg/dL (< 100); Osmolality,Calculated 276 (280-300); Potassium 4.2 mEq/L (3.5-5.1); Sodium 132 mEq/L (136-145); Total Protein 6.3 g/dL (6.4-8.9); Triglycerides 127 mg/dL (< 150); eGFR For African Americans > 60 (> 60); eGFR For Non-African Americans > 60 (> 60)
[2020-10-26 04:08] LABS: Estimated Average Glucose 148 mg/dl; Hemoglobin A1C 6.8 %
[2020-10-26] MEDS ORDERED: Perflutren Lipid Microsphere 1.3 ML in 0.9 % Sodium Chloride 8.7 ML IVP PRN (07:55)
[2020-10-26] MEDS ORDERED: Spironolactone 25 MG TABLET PO SCH (09:00)
[2020-10-26] MEDS: predniSONE 1 MG TABLET PO SCH (09:33)
[2020-10-26] MEDS: DilTIAZem CD (24hr) 240 MG CAP.ER.24H PO SCH (09:33)
[2020-10-26] MEDS: Aspirin Enteric Coated 81 MG Tablet PO SCH (09:33)
[2020-10-26] MEDS: Pregabalin 75 MG CAPSULE PO SCH ×2 (09:33→21:22)
[2020-10-26] MEDS: Apixaban 5 MG TABLET PO SCH ×2 (09:33→21:22)
[2020-10-27] MEDS: Insulin LISPRO 300 UNITS/3 ML VIAL SUBQ SCH ×4 (00:31→17:47)
[2020-10-27 04:21] LABS: Hematocrit 37.1 % (35.3-44.9); Hemoglobin 12.2 g/dL (11.5-15.4); Mean Corpuscular HGB Conc 32.9 g/dL (31.6-35.5); Mean Corpuscular Hemoglobin 30.7 pg (28.0-33.3); Mean Corpuscular Volume 93.5 fL (83.0-100.0); Mean Platelet Volume 9.6 fL (9.4-12.4); Platelet Count 472 K/mcL (140-400); Red Blood Count 3.97 M/mcL (3.82-4.97); Red Cell Distribution Width 13.2 % (11.5-14.5); White Blood Count 16.2 K/mcL (4.3-11.1)
[2020-10-27 05:00] LABS: Alanine Aminotransferase 99 Units/L (7-52); Albumin 3.2 g/dL (3.5-5.7); Albumin/Globulin Ratio 1.1 (1.1-2.2); Alkaline Phosphatase 149 Units/L (34-104); Aspartate Amino Transferase 82 Units/L (13-39); BUN/Creatinine Ratio 24 (6-26); Bilirubin,Total 0.6 mg/dL (0.3-1.0); Blood Urea Nitrogen 18 mg/dL (8-23); Calcium 7.6 mg/dL (8.6-10.3); Carbon Dioxide 21 mEq/L (23-29); Chloride 101 mEq/L (98-107); Glucose 127 mg/dL (70-105); Osmolality,Calculated 279 (280-300); Potassium 4.3 mEq/L (3.5-5.1); Sodium 133 mEq/L (136-145); Total Protein 6.2 g/dL (6.4-8.9); eGFR For African Americans > 60 (> 60); eGFR For Non-African Americans > 60 (> 60)
[2020-10-27] MEDS: predniSONE 1 MG TABLET PO SCH (08:03)
[2020-10-27] MEDS: Aspirin Enteric Coated 81 MG Tablet PO SCH (08:03)
[2020-10-27] MEDS: Apixaban 5 MG TABLET PO SCH ×2 (08:03→21:09)
[2020-10-27] MEDS: Pregabalin 75 MG CAPSULE PO SCH ×2 (08:03→21:09)
[2020-10-27] MEDS: DilTIAZem CD (24hr) 240 MG CAP.ER.24H PO SCH (08:03)
[2020-10-28] MEDS: Insulin LISPRO 300 UNITS/3 ML VIAL SUBQ SCH ×4 (00:17→18:17)
[2020-10-28 06:06] LABS: Hematocrit 36.4 % (35.3-44.9); Hemoglobin 11.6 g/dL (11.5-15.4); Mean Corpuscular HGB Conc 31.9 g/dL (31.6-35.5); Mean Corpuscular Hemoglobin 30.3 pg (28.0-33.3); Mean Platelet Volume 9.4 fL (9.4-12.4); Platelet Count 474 K/mcL (140-400); Red Blood Count 3.83 M/mcL (3.82-4.97); Red Cell Distribution Width 13.3 % (11.5-14.5); White Blood Count 20.2 K/mcL (4.3-11.1)
[2020-10-28 06:44] LABS: Alanine Aminotransferase 84 Units/L (7-52); Albumin 3.1 g/dL (3.5-5.7); Alkaline Phosphatase 152 Units/L (34-104); Aspartate Amino Transferase 49 Units/L (13-39); BUN/Creatinine Ratio 23 (6-26); Bilirubin,Total 0.4 mg/dL (0.3-1.0); Blood Urea Nitrogen 19 mg/dL (8-23); Calcium 7.7 mg/dL (8.6-10.3); Carbon Dioxide 23 mEq/L (23-29); Chloride 98 mEq/L (98-107); Glucose 180 mg/dL (70-105); Osmolality,Calculated 281 (280-300); Potassium 3.9 mEq/L (3.5-5.1); Sodium 132 mEq/L (136-145); Total Protein 6.1 g/dL (6.4-8.9); eGFR For African Americans > 60 (> 60); eGFR For Non-African Americans > 60 (> 60)
[2020-10-28] MEDS: Apixaban 5 MG TABLET PO SCH ×3 (08:08→20:36)
[2020-10-28] MEDS: predniSONE 1 MG TABLET PO SCH ×2 (08:08→12:29)
[2020-10-28] MEDS: Aspirin Enteric Coated 81 MG Tablet PO SCH ×2 (08:08→12:29)
[2020-10-28] MEDS: DilTIAZem CD (24hr) 240 MG CAP.ER.24H PO SCH ×2 (08:08→12:29)
[2020-10-28] MEDS: Pregabalin 75 MG CAPSULE PO SCH ×3 (08:08→20:36)
[2020-10-28 16:37] LABS: Hepatitis B Surface Antigen Nonreactive (Nonreactive)
[2020-10-28 17:06] LABS: Hepatitis C Virus Antibody Nonreactive (Nonreactive)
[2020-10-28 17:07] LABS: Hepatitis B Core IgM Nonreactive (Nonreactive)
[2020-10-28 17:10] LABS: Hepatitis A Antibody IgM Nonreactive (Nonreactive)
[2020-10-28 18:30] LABS: Basophils # 0.1 K/mcL (0.0-0.2); Basophils % 0.4 %; Eosinophils % 0.2 %; Hematocrit 38.3 % (35.3-44.9); Hemoglobin 12.3 g/dL (11.5-15.4); Immature Granulocytes % 3.2 % (0-4); Lymphocytes # 1.8 K/mcL (0.6-4.6); Lymphocytes % 8.2 %; Mean Corpuscular HGB Conc 32.1 g/dL (31.6-35.5); Mean Corpuscular Hemoglobin 30.4 pg (28.0-33.3); Mean Corpuscular Volume 94.6 fL (83.0-100.0); Mean Platelet Volume 9.4 fL (9.4-12.4); Monocytes # 1.8 K/mcL (0.0-1.3); Monocytes % 8.5 %; Neutrophils # 17.1 K/mcL (1.6-8.9); Platelet Count 497 K/mcL (140-400); Red Blood Count 4.05 M/mcL (3.82-4.97); Red Cell Distribution Width 13.4 % (11.5-14.5); Segmented Neutrophils % 79.5 %; White Blood Count 21.6 K/mcL (4.3-11.1)
[2020-10-29 02:26] LABS: Bacteria,Urine Many per hpf (None-Few); Bilirubin,Urine Negative (Negative); Blood,Urine Large (Negative); Clarity,Urine Turbid (Clear); Color,Urine Light-Yellow (Yellow); Glucose,Urine (UA) Normal (Normal); Ketones,Urine Negative (Negative); Leukocyte Esterase,Urine Negative (Negative); Mucus,Urine Many per lpf (None-Few); Nitrite,Urine Negative (Negative); Protein,Urine 30 mg/dL (Neg-Trace); RBC,Urine 50-100 per hpf (0-3); Specific Gravity,Urine 1.011 (1.010-1.025); Urobilinogen,Urine Normal (Normal); WBC,Urine 0-3 per hpf (0-3)
[2020-10-29 06:04] LABS: Basophils # 0.1 K/mcL (0.0-0.2); Basophils % 0.2 %; Eosinophils % 0.1 %; Hematocrit 35.9 % (35.3-44.9); Hemoglobin 11.8 g/dL (11.5-15.4); Immature Granulocytes % 2.4 % (0-4); Lymphocytes # 1.7 K/mcL (0.6-4.6); Mean Corpuscular HGB Conc 32.9 g/dL (31.6-35.5); Mean Corpuscular Hemoglobin 30.8 pg (28.0-33.3); Mean Corpuscular Volume 93.7 fL (83.0-100.0); Mean Platelet Volume 9.3 fL (9.4-12.4); Monocytes # 1.7 K/mcL (0.0-1.3); Neutrophils # 17.5 K/mcL (1.6-8.9); Platelet Count 474 K/mcL (140-400); Red Blood Count 3.83 M/mcL (3.82-4.97); Red Cell Distribution Width 13.3 % (11.5-14.5); Segmented Neutrophils % 81.3 %; White Blood Count 21.6 K/mcL (4.3-11.1)
[2020-10-29 06:33] LABS: Alanine Aminotransferase 85 Units/L (7-52); Albumin 3.1 g/dL (3.5-5.7); Alkaline Phosphatase 151 Units/L (34-104); Aspartate Amino Transferase 51 Units/L (13-39); BUN/Creatinine Ratio 19 (6-26); Bilirubin,Total 0.6 mg/dL (0.3-1.0); Blood Urea Nitrogen 16 mg/dL (8-23); Calcium 7.9 mg/dL (8.6-10.3); Carbon Dioxide 24 mEq/L (23-29); Chloride 96 mEq/L (98-107); Globulin 3.2 g/dL (2.4-3.5); Glucose 196 mg/dL (70-105); Osmolality,Calculated 279 (280-300); Potassium 4.1 mEq/L (3.5-5.1); Sodium 131 mEq/L (136-145); Total Protein 6.3 g/dL (6.4-8.9); eGFR For African Americans > 60 (> 60); eGFR For Non-African Americans > 60 (> 60)
[2020-10-29] MEDS: predniSONE 1 MG TABLET PO SCH (08:39)
[2020-10-29] MEDS: Apixaban 5 MG TABLET PO SCH (08:39)
[2020-10-29] MEDS: DilTIAZem CD (24hr) 240 MG CAP.ER.24H PO SCH (08:40)
[2020-10-29] MEDS: Pregabalin 75 MG CAPSULE PO SCH ×2 (08:40→20:26)
[2020-10-29] MEDS: Aspirin Enteric Coated 81 MG Tablet PO SCH (08:40)
[2020-10-29] MEDS: Insulin LISPRO 300 UNITS/3 ML VIAL SUBQ SCH ×3 (08:43→18:30)
[2020-10-29] MEDS ORDERED: Isovue-370 500 ML BOTTLE IVP ONE (11:53)
[2020-10-29] MEDS ORDERED: ISOVUE-370 100 ML INFUS..BTL PO ONE (11:58)
[2020-10-29] MEDS ORDERED: Acetaminophen 325 MG TABLET PO PRN (12:07)
[2020-10-29 12:23] LABS: Amylase 81 Units/L (29-103); Lactate Dehydrogenase 225 Units/L (140-271); Lipase 142 Units/L (11-82); Uric Acid 3.9 mg/dL (2.3-7.6)
[2020-10-29 12:25] LABS: Procalcitonin 0.43 ng/mL (0.00-0.15)
[2020-10-29] MEDS: 0.9 % Sodium Chloride 1,000 ML IVC SCH (12:29)
[2020-10-29] MEDS ORDERED: Cefepime HCl 2,000 MG in 0.9 % Sodium Chloride Mini Bag 100 ML IVPB SCH (16:00)
[2020-10-29] MEDS ORDERED: Vancomycin 1,250 MG/262.5 ML IV.SOLN IVPB SCH (18:00)
[2020-10-29] MEDS: Cefepime HCl 1,000 MG in Water for inj. (sterile) 10 ML IVP SCH (18:32)
[2020-10-29] MEDS: MetroNIDAZOLE 500 MG/100 ML 500 MG/100 ML BAG IVPB SCH (22:54)
[2020-10-30] MEDS: 0.9 % Sodium Chloride 1,000 ML IVC SCH (05:10)
[2020-10-30] MEDS: Cefepime HCl 1,000 MG in Water for inj. (sterile) 10 ML IVP SCH ×2 (05:11→16:25)
[2020-10-30 06:55] LABS: Alanine Aminotransferase 82 Units/L (7-52); Albumin 2.9 g/dL (3.5-5.7); Alkaline Phosphatase 148 Units/L (34-104); Aspartate Amino Transferase 58 Units/L (13-39); BUN/Creatinine Ratio 21 (6-26); Bilirubin,Total 0.5 mg/dL (0.3-1.0); Blood Urea Nitrogen 18 mg/dL (8-23); Calcium 7.6 mg/dL (8.6-10.3); Carbon Dioxide 25 mEq/L (23-29); Chloride 100 mEq/L (98-107); Glucose 196 mg/dL (70-105); Osmolality,Calculated 285 (280-300); Potassium 3.7 mEq/L (3.5-5.1); Sodium 134 mEq/L (136-145); Total Protein 5.9 g/dL (6.4-8.9); eGFR For African Americans > 60 (> 60); eGFR For Non-African Americans > 60 (> 60)
[2020-10-30] MEDS ORDERED: Morphine Sulfate 2 MG/ML SYRINGE IVP PRN (06:57)
[2020-10-30] MEDS ORDERED: Ondansetron 4 MG/2 ML VIAL IVP PRN ×2 (06:57→08:49)
[2020-10-30] MEDS ORDERED: Isovue-300 50ML VIAL ONE (07:01)
[2020-10-30] MEDS ORDERED: Lidocaine -MPF 2% 2 ML VIAL ONE (07:08)
[2020-10-30] MEDS ORDERED: *HR* FentaNYL (PF) 100 MCG/2 ML VIAL ONE (07:08)
[2020-10-30] MEDS ORDERED: *HR* Propofol 200 MG/20 ML VIAL IVP ONE (07:08)
[2020-10-30] MEDS: Insulin LISPRO 300 UNITS/3 ML VIAL SUBQ SCH ×3 (07:48→16:26)
[2020-10-30] MEDS ORDERED: 0.9 % Sodium Chloride 1,000 ML IVC SCH (08:49)
[2020-10-30] MEDS ORDERED: *HR* Dextrose 50 % in Water (Vial) 50 ML VIAL IVP PRN (08:49)
[2020-10-30] MEDS ORDERED: Dextrose Gel 15 GM/37.5 ML TUBE PO PRN ×2 (08:49)
[2020-10-30] MEDS ORDERED: Naloxone 0.4 MG/ML INJ IVP PRN (08:49)
[2020-10-30] MEDS ORDERED: Acetaminophen 325 MG TABLET PO PRN (08:49)
[2020-10-30] MEDS ORDERED: Melatonin 3 MG TABLET PO PRN (08:49)
[2020-10-30] MEDS ORDERED: Perflutren Lipid Microsphere 1.3 ML in 0.9 % Sodium Chloride 8.7 ML IVP PRN (08:49)
[2020-10-30] MEDS ORDERED: D5% in Water 1,000 ML IVC PRN (08:49)
[2020-10-30] MEDS: MetroNIDAZOLE 500 MG/100 ML 500 MG/100 ML BAG IVPB SCH ×3 (08:53→20:41)
[2020-10-30] MEDS: Pregabalin 75 MG CAPSULE PO SCH ×2 (10:32→20:40)
[2020-10-30] MEDS: Aspirin Enteric Coated 81 MG Tablet PO SCH (10:32)
[2020-10-30] MEDS: predniSONE 1 MG TABLET PO SCH (10:33)
[2020-10-30] MEDS: DilTIAZem CD (24hr) 240 MG CAP.ER.24H PO SCH (10:33)
[2020-10-30] MEDS: Ipratropium/Albuterol Neb 3 ML IH SCH ×2 (15:48→21:28)
[2020-10-30] MEDS: Vancomycin 1,250 MG/262.5 ML IV.SOLN IVPB SCH (17:35)
[2020-10-31] MEDS: MetroNIDAZOLE 500 MG/100 ML 500 MG/100 ML BAG IVPB SCH ×3 (02:21→19:19)
[2020-10-31] MEDS: Ipratropium/Albuterol Neb 3 ML IH SCH ×4 (03:51→22:26)
[2020-10-31] MEDS: Cefepime HCl 1,000 MG in Water for inj. (sterile) 10 ML IVP SCH ×2 (05:19→17:32)
[2020-10-31 07:36] LABS: Basophils % 0.2 %; Eosinophils % 0.1 %; Hemoglobin 10.6 g/dL (11.5-15.4); Immature Granulocytes % 1.4 % (0-4); Lymphocytes # 1.4 K/mcL (0.6-4.6); Lymphocytes % 6.7 %; Mean Corpuscular HGB Conc 32.1 g/dL (31.6-35.5); Mean Corpuscular Hemoglobin 30.7 pg (28.0-33.3); Mean Corpuscular Volume 95.7 fL (83.0-100.0); Mean Platelet Volume 10.5 fL (9.4-12.4); Monocytes # 0.7 K/mcL (0.0-1.3); Monocytes % 3.5 %; Platelet Count 380 K/mcL (140-400); Red Blood Count 3.45 M/mcL (3.82-4.97); Red Cell Distribution Width 13.3 % (11.5-14.5); Segmented Neutrophils % 88.1 %; White Blood Count 20.4 K/mcL (4.3-11.1)
[2020-10-31] MEDS: Insulin LISPRO 300 UNITS/3 ML VIAL SUBQ SCH ×3 (08:52→17:36)
[2020-10-31 09:30] LABS: Alanine Aminotransferase 97 Units/L (7-52); Albumin 2.7 g/dL (3.5-5.7); Albumin/Globulin Ratio 0.9 (1.1-2.2); Alkaline Phosphatase 137 Units/L (34-104); Aspartate Amino Transferase 67 Units/L (13-39); BUN/Creatinine Ratio 24 (6-26); Bilirubin,Total 0.3 mg/dL (0.3-1.0); Blood Urea Nitrogen 20 mg/dL (8-23); Calcium 7.8 mg/dL (8.6-10.3); Carbon Dioxide 26 mEq/L (23-29); Chloride 102 mEq/L (98-107); Glucose 279 mg/dL (70-105); Osmolality,Calculated 295 (280-300); Potassium 4.3 mEq/L (3.5-5.1); Sodium 136 mEq/L (136-145); Total Protein 5.7 g/dL (6.4-8.9); eGFR For African Americans > 60 (> 60); eGFR For Non-African Americans > 60 (> 60)
[2020-10-31 09:52] LABS: ANA IgG by ELISA NONE DETECTED (None Detected)
[2020-10-31] MEDS: Pregabalin 75 MG CAPSULE PO SCH ×2 (10:22→20:31)
[2020-10-31] MEDS: Aspirin Enteric Coated 81 MG Tablet PO SCH (10:22)
[2020-10-31] MEDS: predniSONE 1 MG TABLET PO SCH (10:23)
[2020-10-31] MEDS: DilTIAZem CD (24hr) 240 MG CAP.ER.24H PO SCH (10:23)
[2020-10-31] MEDS: Vancomycin 1,250 MG/262.5 ML IV.SOLN IVPB SCH (17:30)
[2020-11-01] MEDS: MetroNIDAZOLE 500 MG/100 ML 500 MG/100 ML BAG IVPB SCH ×3 (03:01→20:03)
[2020-11-01 04:08] LABS: Basophils % 0.1 %; Eosinophils % 0.2 %; Hematocrit 32.2 % (35.3-44.9); Hemoglobin 10.6 g/dL (11.5-15.4); Immature Granulocytes % 0.9 % (0-4); Lymphocytes # 1.9 K/mcL (0.6-4.6); Lymphocytes % 10.9 %; Mean Corpuscular HGB Conc 32.9 g/dL (31.6-35.5); Mean Corpuscular Hemoglobin 30.9 pg (28.0-33.3); Mean Corpuscular Volume 93.9 fL (83.0-100.0); Mean Platelet Volume 9.2 fL (9.4-12.4); Monocytes # 1.1 K/mcL (0.0-1.3); Monocytes % 6.1 %; Neutrophils # 14.6 K/mcL (1.6-8.9); Platelet Count 436 K/mcL (140-400); Red Blood Count 3.43 M/mcL (3.82-4.97); Red Cell Distribution Width 13.3 % (11.5-14.5); Segmented Neutrophils % 81.8 %; White Blood Count 17.8 K/mcL (4.3-11.1)
[2020-11-01 04:26] LABS: Alanine Aminotransferase 84 Units/L (7-52); Albumin 2.8 g/dL (3.5-5.7); Alkaline Phosphatase 123 Units/L (34-104); Aspartate Amino Transferase 42 Units/L (13-39); BUN/Creatinine Ratio 29 (6-26); Bilirubin,Total 0.3 mg/dL (0.3-1.0); Blood Urea Nitrogen 23 mg/dL (8-23); Calcium 7.5 mg/dL (8.6-10.3); Carbon Dioxide 25 mEq/L (23-29); Chloride 101 mEq/L (98-107); Globulin 2.7 g/dL (2.4-3.5); Glucose 205 mg/dL (70-105); Magnesium 1.5 mg/dL (1.6-2.6); Osmolality,Calculated 288 (280-300); Potassium 3.7 mEq/L (3.5-5.1); Sodium 134 mEq/L (136-145); Total Protein 5.5 g/dL (6.4-8.9); eGFR For African Americans > 60 (> 60); eGFR For Non-African Americans > 60 (> 60)
[2020-11-01] MEDS: Ipratropium/Albuterol Neb 3 ML IH SCH ×4 (04:35→22:36)
[2020-11-01] MEDS: Cefepime HCl 1,000 MG in Water for inj. (sterile) 10 ML IVP SCH ×2 (06:00→16:17)
[2020-11-01] MEDS: Aspirin Enteric Coated 81 MG Tablet PO SCH (08:06)
[2020-11-01] MEDS: DilTIAZem CD (24hr) 240 MG CAP.ER.24H PO SCH (08:07)
[2020-11-01] MEDS: predniSONE 1 MG TABLET PO SCH (08:07)
[2020-11-01] MEDS: Pregabalin 75 MG CAPSULE PO SCH ×2 (08:07→20:03)
[2020-11-01] MEDS: Insulin LISPRO 300 UNITS/3 ML VIAL SUBQ SCH ×3 (08:09→19:03)
[2020-11-01] MEDS: Vancomycin 2,000 MG/520 ML IV.SOLN IVPB SCH (20:02)
[2020-11-02 00:41] LABS: Basophils % 0.3 %; Eosinophils # 0.1 K/mcL (0.0-0.6); Eosinophils % 0.8 %; Hematocrit 32.3 % (35.3-44.9); Hemoglobin 10.4 g/dL (11.5-15.4); Immature Granulocytes % 0.8 % (0-4); Lymphocytes # 1.8 K/mcL (0.6-4.6); Lymphocytes % 13.4 %; Mean Corpuscular HGB Conc 32.2 g/dL (31.6-35.5); Mean Corpuscular Hemoglobin 30.2 pg (28.0-33.3); Mean Corpuscular Volume 93.9 fL (83.0-100.0); Mean Platelet Volume 8.9 fL (9.4-12.4); Monocytes # 1.1 K/mcL (0.0-1.3); Monocytes % 8.6 %; Neutrophils # 10.1 K/mcL (1.6-8.9); Platelet Count 420 K/mcL (140-400); Red Blood Count 3.44 M/mcL (3.82-4.97); Red Cell Distribution Width 13.4 % (11.5-14.5); Segmented Neutrophils % 76.1 %; White Blood Count 13.2 K/mcL (4.3-11.1)
[2020-11-02 00:55] LABS: Alanine Aminotransferase 62 Units/L (7-52); Albumin 2.7 g/dL (3.5-5.7); Albumin/Globulin Ratio 0.9 (1.1-2.2); Alkaline Phosphatase 115 Units/L (34-104); Aspartate Amino Transferase 19 Units/L (13-39); BUN/Creatinine Ratio 23 (6-26); Bilirubin,Total 0.3 mg/dL (0.3-1.0); Blood Urea Nitrogen 18 mg/dL (8-23); Calcium 7.3 mg/dL (8.6-10.3); Carbon Dioxide 26 mEq/L (23-29); Chloride 100 mEq/L (98-107); Globulin 2.9 g/dL (2.4-3.5); Glucose 242 mg/dL (70-105); Osmolality,Calculated 292 (280-300); Potassium 3.5 mEq/L (3.5-5.1); Sodium 136 mEq/L (136-145); Total Protein 5.6 g/dL (6.4-8.9); eGFR For African Americans > 60 (> 60); eGFR For Non-African Americans > 60 (> 60)
[2020-11-02] MEDS: MetroNIDAZOLE 500 MG/100 ML 500 MG/100 ML BAG IVPB SCH ×3 (03:47→18:39)
[2020-11-02] MEDS: Ipratropium/Albuterol Neb 3 ML IH SCH ×4 (03:54→22:18)
[2020-11-02] MEDS: Cefepime HCl 1,000 MG in Water for inj. (sterile) 10 ML IVP SCH ×2 (06:19→18:37)
[2020-11-02] MEDS: DilTIAZem CD (24hr) 240 MG CAP.ER.24H PO SCH (08:25)
[2020-11-02] MEDS: predniSONE 1 MG TABLET PO SCH (08:26)
[2020-11-02] MEDS: Pregabalin 75 MG CAPSULE PO SCH (08:27)
[2020-11-02] MEDS: Aspirin Enteric Coated 81 MG Tablet PO SCH (08:27)
[2020-11-02] MEDS: Insulin LISPRO 300 UNITS/3 ML VIAL SUBQ SCH ×3 (08:28→18:35)
[2020-11-02] MEDS: Vancomycin 1,250 MG/262.5 ML IV.SOLN IVPB SCH (12:24)
[2020-11-02] MEDS: Pregabalin 25 MG CAPSULE PO SCH (20:31)
[2020-11-02] MEDS: Vancomycin 2,000 MG/520 ML IV.SOLN IVPB SCH (20:38)
[2020-11-03] MEDS: MetroNIDAZOLE 500 MG/100 ML 500 MG/100 ML BAG IVPB SCH ×3 (03:19→17:39)
[2020-11-03] MEDS: Ipratropium/Albuterol Neb 3 ML IH SCH ×4 (03:56→21:45)
[2020-11-03] MEDS: Cefepime HCl 1,000 MG in Water for inj. (sterile) 10 ML IVP SCH ×2 (05:58→17:38)
[2020-11-03] MEDS: DilTIAZem CD (24hr) 240 MG CAP.ER.24H PO SCH (09:16)
[2020-11-03] MEDS: Aspirin Enteric Coated 81 MG Tablet PO SCH (09:18)
[2020-11-03] MEDS: predniSONE 1 MG TABLET PO SCH (09:18)
[2020-11-03] MEDS: Pregabalin 25 MG CAPSULE PO SCH ×2 (09:20→19:56)
[2020-11-03] MEDS: Insulin LISPRO 300 UNITS/3 ML VIAL SUBQ SCH ×3 (09:21→17:37)
[2020-11-03 11:19] LABS: Basophils # 0.1 K/mcL (0.0-0.2); Basophils % 0.3 %; Eosinophils # 0.1 K/mcL (0.0-0.6); Eosinophils % 0.5 %; Hematocrit 33.9 % (35.3-44.9); Hemoglobin 11.2 g/dL (11.5-15.4); Immature Granulocytes % 0.7 % (0-4); Lymphocytes # 1.3 K/mcL (0.6-4.6); Lymphocytes % 8.8 %; Mean Corpuscular Hemoglobin 31.1 pg (28.0-33.3); Mean Corpuscular Volume 94.2 fL (83.0-100.0); Monocytes # 0.9 K/mcL (0.0-1.3); Monocytes % 5.9 %; Neutrophils # 12.5 K/mcL (1.6-8.9); Platelet Count 380 K/mcL (140-400); Red Cell Distribution Width 13.2 % (11.5-14.5); Segmented Neutrophils % 83.8 %
[2020-11-03 11:36] LABS: BUN/Creatinine Ratio 16 (6-26); Blood Urea Nitrogen 15 mg/dL (8-23); Calcium 7.2 mg/dL (8.6-10.3); Carbon Dioxide 27 mEq/L (23-29); Chloride 101 mEq/L (98-107); Glucose 268 mg/dL (70-105); Osmolality,Calculated 296 (280-300); Potassium 3.5 mEq/L (3.5-5.1); Sodium 138 mEq/L (136-145); eGFR For African Americans > 60 (> 60); eGFR For Non-African Americans 58 (> 60)
[2020-11-03] MEDS: Vancomycin 2,000 MG/520 ML IV.SOLN IVPB SCH (19:10)
[2020-11-04 00:39] LABS: VBG Ionized Calcium 0.97 mmol/L (1.15-1.35)
[2020-11-04 00:46] LABS: Basophils # 0.1 K/mcL (0.0-0.2); Basophils % 0.3 %; Eosinophils # 0.1 K/mcL (0.0-0.6); Eosinophils % 0.6 %; Hematocrit 33.9 % (35.3-44.9); Hemoglobin 11.1 g/dL (11.5-15.4); Immature Granulocytes % 0.7 % (0-4); Lymphocytes # 1.7 K/mcL (0.6-4.6); Lymphocytes % 10.9 %; Mean Corpuscular HGB Conc 32.7 g/dL (31.6-35.5); Mean Corpuscular Hemoglobin 30.6 pg (28.0-33.3); Mean Corpuscular Volume 93.4 fL (83.0-100.0); Mean Platelet Volume 9.2 fL (9.4-12.4); Monocytes % 6.7 %; Neutrophils # 12.5 K/mcL (1.6-8.9); Platelet Count 358 K/mcL (140-400); Red Blood Count 3.63 M/mcL (3.82-4.97); Red Cell Distribution Width 13.2 % (11.5-14.5); Segmented Neutrophils % 80.8 %; White Blood Count 15.4 K/mcL (4.3-11.1)
[2020-11-04 00:56] LABS: Alanine Aminotransferase 32 Units/L (7-52); Albumin 2.8 g/dL (3.5-5.7); Alkaline Phosphatase 102 Units/L (34-104); Aspartate Amino Transferase 9 Units/L (13-39); BUN/Creatinine Ratio 23 (6-26); Bilirubin,Direct 0.1 mg/dL (0.0-0.2); Bilirubin,Indirect 0.3 mg/dL (0.0-1.0); Bilirubin,Total 0.4 mg/dL (0.3-1.0); Blood Urea Nitrogen 17 mg/dL (8-23); Calcium 7.4 mg/dL (8.6-10.3); Carbon Dioxide 28 mEq/L (23-29); Chloride 100 mEq/L (98-107); Globulin 2.7 g/dL (2.4-3.5); Glucose 245 mg/dL (70-105); Osmolality,Calculated 294 (280-300); Potassium 3.5 mEq/L (3.5-5.1); Sodium 137 mEq/L (136-145); Total Protein 5.5 g/dL (6.4-8.9); eGFR For African Americans > 60 (> 60); eGFR For Non-African Americans > 60 (> 60)
[2020-11-04] MEDS ORDERED: *HR* Metoprolol 5 MG/5 ML VIAL IVP ONE ×2 (03:27→04:17)
[2020-11-04] MEDS: MetroNIDAZOLE 500 MG/100 ML 500 MG/100 ML BAG IVPB SCH ×3 (03:34→17:42)
[2020-11-04] MEDS: Ipratropium/Albuterol Neb 3 ML IH SCH ×4 (03:46→22:54)
[2020-11-04] MEDS: Cefepime HCl 1,000 MG in Water for inj. (sterile) 10 ML IVP SCH (04:37)
[2020-11-04] MEDS: Insulin LISPRO 300 UNITS/3 ML VIAL SUBQ SCH ×3 (10:31→17:42)
[2020-11-04] MEDS: DilTIAZem CD (24hr) 240 MG CAP.ER.24H PO SCH (10:32)
[2020-11-04] MEDS: Pregabalin 25 MG CAPSULE PO SCH ×2 (10:32→20:23)
[2020-11-04] MEDS: predniSONE 1 MG TABLET PO SCH (10:33)
[2020-11-04] MEDS: Aspirin Enteric Coated 81 MG Tablet PO SCH (10:33)
[2020-11-04] MEDS: Apixaban 5 MG TABLET PO SCH ×2 (11:52→20:22)
[2020-11-05] MEDS: MetroNIDAZOLE 500 MG/100 ML 500 MG/100 ML BAG IVPB SCH (03:20)
[2020-11-05] MEDS: Ipratropium/Albuterol Neb 3 ML IH SCH ×4 (03:39→23:02)
[2020-11-05] MEDS: Doxycycline 100 MG CAPSULE PO SCH ×2 (05:20→17:23)
[2020-11-05 06:26] LABS: Basophils # 0.1 K/mcL (0.0-0.2); Basophils % 0.4 %; Eosinophils # 0.1 K/mcL (0.0-0.6); Hematocrit 34.7 % (35.3-44.9); Hemoglobin 10.8 g/dL (11.5-15.4); Lymphocytes # 1.8 K/mcL (0.6-4.6); Lymphocytes % 13.7 %; Mean Corpuscular HGB Conc 31.1 g/dL (31.6-35.5); Mean Corpuscular Hemoglobin 29.8 pg (28.0-33.3); Mean Corpuscular Volume 95.6 fL (83.0-100.0); Mean Platelet Volume 9.4 fL (9.4-12.4); Monocytes % 7.1 %; Neutrophils # 10.3 K/mcL (1.6-8.9); Platelet Count 384 K/mcL (140-400); Red Blood Count 3.63 M/mcL (3.82-4.97); Red Cell Distribution Width 13.4 % (11.5-14.5); Segmented Neutrophils % 76.8 %; White Blood Count 13.4 K/mcL (4.3-11.1)
[2020-11-05 06:41] LABS: BUN/Creatinine Ratio 24 (6-26); Blood Urea Nitrogen 19 mg/dL (8-23); Calcium 7.6 mg/dL (8.6-10.3); Carbon Dioxide 29 mEq/L (23-29); Chloride 100 mEq/L (98-107); Glucose 223 mg/dL (70-105); Osmolality,Calculated 295 (280-300); Potassium 3.4 mEq/L (3.5-5.1); Sodium 138 mEq/L (136-145); eGFR For African Americans > 60 (> 60); eGFR For Non-African Americans > 60 (> 60)
[2020-11-05] MEDS: Insulin LISPRO 300 UNITS/3 ML VIAL SUBQ SCH ×3 (07:33→17:23)
[2020-11-05] MEDS: predniSONE 1 MG TABLET PO SCH (07:34)
[2020-11-05] MEDS: Apixaban 5 MG TABLET PO SCH ×2 (07:34→19:43)
[2020-11-05] MEDS: Cefdinir 300 MG CAPSULE PO SCH ×2 (07:34→19:43)
[2020-11-05] MEDS: Pregabalin 25 MG CAPSULE PO SCH ×2 (07:34→19:44)
[2020-11-05] MEDS: Aspirin Enteric Coated 81 MG Tablet PO SCH (07:34)
[2020-11-05] MEDS: DilTIAZem CD (24hr) 240 MG CAP.ER.24H PO SCH (07:34)
[2020-11-05] MEDS ORDERED: Potassium Chloride Elixir 20 MEQ/15 ML UDC PO ONE (09:14)
[2020-11-05 09:52] LABS: Magnesium 1.5 mg/dL (1.6-2.6)
[2020-11-06] MEDS: Ipratropium/Albuterol Neb 3 ML IH SCH ×4 (03:52→22:02)
[2020-11-06] MEDS: Doxycycline 100 MG CAPSULE PO SCH ×2 (05:39→17:08)
[2020-11-06 06:55] LABS: Basophils # 0.1 K/mcL (0.0-0.2); Basophils % 0.7 %; Eosinophils # 0.1 K/mcL (0.0-0.6); Eosinophils % 1.1 %; Hematocrit 35.8 % (35.3-44.9); Hemoglobin 11.2 g/dL (11.5-15.4); Lymphocytes # 1.7 K/mcL (0.6-4.6); Lymphocytes % 14.8 %; Mean Corpuscular HGB Conc 31.3 g/dL (31.6-35.5); Mean Corpuscular Hemoglobin 30.2 pg (28.0-33.3); Mean Corpuscular Volume 96.5 fL (83.0-100.0); Mean Platelet Volume 9.9 fL (9.4-12.4); Monocytes # 0.8 K/mcL (0.0-1.3); Monocytes % 7.3 %; Neutrophils # 8.5 K/mcL (1.6-8.9); Platelet Count 317 K/mcL (140-400); Red Blood Count 3.71 M/mcL (3.82-4.97); Red Cell Distribution Width 13.7 % (11.5-14.5); Segmented Neutrophils % 75.1 %; White Blood Count 11.3 K/mcL (4.3-11.1)
[2020-11-06 07:21] LABS: BUN/Creatinine Ratio 28 (6-26); Blood Urea Nitrogen 19 mg/dL (8-23); Calcium 7.4 mg/dL (8.6-10.3); Carbon Dioxide 25 mEq/L (23-29); Chloride 101 mEq/L (98-107); Glucose 233 mg/dL (70-105); Osmolality,Calculated 292 (280-300); Potassium 3.9 mEq/L (3.5-5.1); Sodium 136 mEq/L (136-145); eGFR For African Americans > 60 (> 60); eGFR For Non-African Americans > 60 (> 60)
[2020-11-06] MEDS: DilTIAZem CD (24hr) 180 MG CAP.ER.24H PO SCH ×2 (08:35→12:00)
[2020-11-06] MEDS: Apixaban 5 MG TABLET PO SCH ×2 (08:36→21:32)
[2020-11-06] MEDS: Aspirin Enteric Coated 81 MG Tablet PO SCH (08:36)
[2020-11-06] MEDS: Magnesium Oxide 400 MG TABLET PO SCH (08:36)
[2020-11-06] MEDS: Cefdinir 300 MG CAPSULE PO SCH ×2 (08:36→21:32)
[2020-11-06] MEDS: Pregabalin 25 MG CAPSULE PO SCH ×2 (08:36→21:32)
[2020-11-06] MEDS: predniSONE 1 MG TABLET PO SCH (08:37)
[2020-11-06] MEDS: Insulin LISPRO 300 UNITS/3 ML VIAL SUBQ SCH ×3 (08:37→17:07)
[2020-11-07] MEDS: Ipratropium/Albuterol Neb 3 ML IH SCH (04:16)
[2020-11-07] MEDS: Doxycycline 100 MG CAPSULE PO SCH (06:10)
[2020-11-07 06:27] VITALS: BP 109/60
[2020-11-07] MEDS ORDERED: DilTIAZem CD (24hr) 240 MG CAP.ER.24H PO SCH (07:00)
[2020-11-07] MEDS: Aspirin Enteric Coated 81 MG Tablet PO SCH (08:51)
[2020-11-07] MEDS: predniSONE 1 MG TABLET PO SCH (08:51)
[2020-11-07] MEDS: Magnesium Oxide 400 MG TABLET PO SCH (08:51)
[2020-11-07] MEDS: Pregabalin 25 MG CAPSULE PO SCH (08:52)
[2020-11-07] MEDS: Cefdinir 300 MG CAPSULE PO SCH (08:52)
[2020-11-07] MEDS: DilTIAZem CD (24hr) 180 MG CAP.ER.24H PO SCH ×2 (08:52→09:15)
[2020-11-07] MEDS: Apixaban 5 MG TABLET PO SCH (08:53)
[2020-11-07] MEDS: Insulin LISPRO 300 UNITS/3 ML VIAL SUBQ SCH (08:55)
[2020-11-07 10:05] LABS: Adenovirus Not Detected (Not Detect); Bordetella Pertussis Not Detected (Not Detect); Chlamydophila pneumoniae Not Detected (Not Detect); Coronavirus 229E Not Detected (Not Detect); Coronavirus HKU1 Not Detected (Not Detect); Coronavirus NL63 Not Detected (Not Detect); Coronavirus OC43 Not Detected (Not Detect); Human Metapneumovirus Not Detected (Not Detect); Human Rhinovirus/Enterovirus Not Detected (Not Detect); Influenza A Subtype 2009 H1 Not Detected (Not Detect); Influenza B Not Detected (Not Detect); Mycoplasma pneumoniae Not Detected (Not Detect); Parainfluenza Virus 1 Not Detected (Not Detect); Parainfluenza Virus 2 Not Detected (Not Detect); Parainfluenza Virus 3 Not Detected (Not Detect); Parainfluenza Virus 4 Not Detected (Not Detect); Respiratory Syncytial Virus Not Detected (Not Detect); SARS-CoV-2 Not Detected (Not Detect)
== END 2020-11-07 10:18 | disposition other institution (70) | DRG 70 ==
LOC: 3BNU → SUATTDRO 10-25 00:50
PROVIDERS: ADMIT Registered Nurse; ATTEND Registered Nurse